=== PATIENT | female | born 1955 | race African-American/Black ===

== ENCOUNTER 2017-05-16 06:45 | Emergency (ER) | payer MEDICARE ==
[2017-05-16 06:58] LABS: ABSOLUTE BASOPHILS # (AUTO) 0.1 10^3/uL (0.0-0.2); ABSOLUTE EOSINOPHILS # (AUTO) 0.1 10^3/uL (0.0-0.6); ABSOLUTE LYMPHOCYTES (AUTO) 2.6 10^3/uL (0.5-4.7); ABSOLUTE MONOCYTES (AUTO) 0.5 10^3/uL (0.1-1.4); ABSOLUTE NEUT (AUTO) 5.4 10^3/uL (1.7-8.2); BASOPHILS % (AUTO) 0.9 % (0-2); EOSINOPHILS % (AUTO) 0.8 % (0-6); HEMATOCRIT 40.4 % (36.0-47.0); HEMOGLOBIN 13.3 g/dL (12.0-15.5); LYMPHOCYTES % (AUTO) 30.2 % (13-45); MEAN CORPUSCULAR HEMOGLOBIN 28.7 pg (27.0-33.4); MEAN CORPUSCULAR HGB CONC 32.9 g/dL (32.0-36.0); MEAN CORPUSCULAR VOLUME 87 fl (80-97); PLATELET COUNT 617 10^3/uL (150-450); RED BLOOD COUNT 4.63 10^6/uL (3.72-5.28); RED CELL DISTRIBUTION WIDTH 15.1 % (11.5-14.0); SEGMENTED NEUTROPHILS % (AUTO) 62.1 % (42-78); TOTAL CELLS COUNTED % (AUTO) 100 %; WHITE BLOOD COUNT 8.7 10^3/uL (4.0-10.5)
--- NOTE | 2017-05-16 07:16 | ER Document Report ---
ED Respiratory Problem - General Chief Complaint: Breathing Difficulty Stated Complaint: DIFFICULTY BREATHING Time Seen by Provider: 05/16/17 06:46 Notes: The patient is a 61-year-old female, past medical history COPD, current smoker, presents with 1 day of increased productive cough, wheezing and shortness of breath. EMS was called this morning and she received 2 duo nebs and 125 mg Solu -Medrol. On arrival to the ER, she feels much better and her wheezing has improved. Her last COPD exacerbation was 2 years ago. She denies chest pain, nausea, vomiting, fevers, diarrhea, constipation, abdominal pain, leg swelling, hemoptysis or recent travel. TRAVEL OUTSIDE OF THE [place] IN LAST 30 DAYS: No - Related Data Allergies/Adverse Reactions: aspirin Allergy (Verified 09/10/15 19:20) levofloxacin [From Levaquin] Allergy (Verified 09/10/15 19:20) NSAIDS (Non-Steroidal Anti-Inflamma Allergy (Verified 09/10/15 19:20) Past Medical History - General Information source: Patient - Social History Smoking Status: Current Every Day Smoker Chew tobacco use (# tins/day): No Frequency of alcohol use: None Drug Abuse: None Family History: Reviewed & Not Pertinent Patient has suicidal ideation: No Patient has homicidal ideation: No Pulmonary Medical History: Reports: Hx Asthma, Hx COPD Renal/ Medical History: Denies: Hx Peritoneal Dialysis Past Surgical History: Reports: Hx Hysterectomy, Hx Mastectomy - 2007 Review of Systems - Review of Systems Notes: REVIEW OF SYSTEMS: CONSTITUTIONAL: -fevers, -chills EENT: -eye pain, -difficulty swallowing, -nasal congestion CARDIOVASCULAR: -chest pain, -syncope. RESPIRATORY: +productive cough, +SOB GASTROINTESTINAL: -abdominal pain, -nausea, -vomiting, -diarrhea GENITOURINARY: -dysuria, -hematuria MUSCULOSKELETAL: -back pain, -neck pain SKIN: -rash or skin lesions. HEMATOLOGIC: -easy bruising or bleeding. LYMPHATIC: -swollen, enlarged glands. NEUROLOGICAL: -altered mental status or loss of consciousness, -headache, - neurologic symptoms PSYCHIATRIC: -anxiety, -depression. ALL OTHER SYSTEMS REVIEWED AND NEGATIVE. Physical Exam - Vital signs Vitals: Temp Pulse Ox 97.5 F 100 05/16/17 06:48 05/16/17 06:48 - Notes Notes: PHYSICAL EXAMINATION: GENERAL: Well-appearing, well-nourished and in no acute distress. HEAD: Atraumatic, normocephalic. EYES: Pupils equal round and reactive to light, extraocular movements intact, sclera anicteric, conjunctiva are normal. ENT: nares patent, oropharynx clear without exudates. Moist mucous membranes. NECK: Normal range of motion, supple without lymphadenopathy LUNGS: Breath sounds clear to auscultation bilaterally and equal. No wheezes rales or rhonchi. No respiratory distress. HEART: Regular rate and rhythm without murmurs ABDOMEN: Soft, nontender, normoactive bowel sounds. No guarding, no rebound. No masses appreciated. EXTREMITIES: Normal range of motion, no pitting or edema. No cyanosis. NEUROLOGICAL: Cranial nerves grossly intact. Normal speech, normal gait. Normal sensory and motor exams. PSYCH: Normal mood, normal affect. SKIN: Warm, Dry, normal turgor, no rashes or lesions noted. Course - Re-evaluation Re-evalutation: Patient continues to not have any wheezing and she is in no respiratory distress. Her chest x-ray and blood work are unremarkable. Will send her home with 4 more days of steroids and a refill of her albuterol with instructions to try to stop smoking. Given very strict return precautions and she understands. - Vital Signs Vital signs: Temp Pulse Resp BP Pulse Ox 97.5 F 27 H 195/95 H 100 05/16/17 06:48 05/16/17 08:41 05/16/17 08:41 05/16/17 08:01 - Laboratory Result Diagrams: 05/16/17 06:15 05/16/17 06:15 Laboratory results interpreted by me: 05/16/17 05/16/17 06:15 06:15 RDW 15.1 H Plt Count 617 H Sodium 147.6 H Potassium 5.1 H Chloride 109 H Direct Bilirubin 0.5 H - Diagnostic Test Radiology reviewed: Image reviewed, Reports reviewed Radiology results interpreted by me: CXR: NAD. Obstructive lung disease. - EKG Interpretation by Me EKG shows normal: Sinus rhythm, A[place], Intervals, QRS Complexes, ST-T Waves Rate: Normal When compared to previous EKG there are: No significant change Additional EKG results interpreted by me: No STEMI. Discharge - Discharge Clinical Impression: COPD exacerbation Condition: Stable Disposition: HOME, SELF-CARE Additional Instructions: BRONCHITIS WITH BRONCHOSPASM (WHEEZING): You have bronchitis with bronchospasm (wheezing). Sometimes people develop wheezing with a chest cold. This occurs either because of an underlying tendency toward asthma or because the virus itself irritates the bronchial tubes. This irritation causes cough, shortness of breath, and wheezing. Emergency treatment of bronchospasm may include adrenaline shots or bronchodilator aerosol. You may feel lightheaded and have a rapid pulse for an hour or two. Rest and get plenty of fluids. At home, we'll treat you with a bronchodilator inhaler. Corticosteroids may be required for some patients. Until you recover, avoid chemical fumes, dusts, pollens, and exercising in very cold or dry air. If you smoke, stop now! Most cases of bronchitis get better without antibiotics. We prescribe antibiotics when we believe bacteria are damaging your airways, or if there's high risk the bronchitis will worsen into pneumonia. Increase your fluid intake. A cool mist humidifier may make your lungs more comfortable. An expectorant (cough medicine that loosens phlegm) can help. Repeated episodes of bronchitis and bronchospasm may result in lung damage -- for example, chronic bronchitis, recurrent pneumonias, or emphysema. If you develop a fever, increased wheezing, chest pain, or severe shortness of breath, you should contact the doctor immediately. INHALED BRONCHODILATORS: You have received a treatment of and/or prescription for an inhaled bronchodilator -- a medication which stimulates the airways in the lung to dilate. This improves the flow of air in asthma, bronchitis, and emphysema. These medicines have some similarity to adrenaline, and can cause similar side effects: shakiness, racing heart, and a sense of nervousness. These side effects decrease with time. Contact your doctor if these side effects are severe. Do not over-use the medicine. Too-frequent use of the inhaler may make it ineffective. Call your doctor if the inhaler is not controlling your symptoms at the prescribed doses. STEROID MEDICATION: You have been given an injection of or oral medicine of the cortisone/ steroid class. This medication is used to control inflammation or allergy. Alonso t is usually only given for a short period of time, until the acute process subsides. There are usually no side effects from short-term use of cortisone-like medications. Some persons feel an increased sense of well-being and are not sleepy at bedtime. Long-term use of cortisone medications is best avoided, unless required for a severe condition. If your condition does not remit, or relapses after the course of corticosteroid medication, you should consult your physician. USE OF ACETAMINOPHEN (Tylenol): Acetaminophen may be taken for pain relief or fever control. It's much safer than aspirin, offering a wider range of "safe" dosages. It is safe during . Some brand names are Tylenol, Panadol, Datril, Anacin 3, Tempra, and Liquiprin. Acetaminophen can be repeated every four hours. The following are maximum recommended dosages: >89 pounds or adults 650 mg to 900 mg Acetaminophen can be repeated every four hours. Maximum dose not to exceed 4000 mg a day. SMOKING: If you smoke, you should stop smoking. The tar and chemicals in cigarette smoke are harmful. Smoking has been shown to cause: emphysema chronic bronchitis lung cancer mouth and throat cancer stomach and pancreas cancer premature aging defects In addition, smoking increases ear and lung infections in children of smokers. FOLLOW-UP CARE: If you have been referred to a physician for follow-up care, call the physician s office for an appointment as you were instructed or within the next two days. If you experience worsening or a significant change in your symptoms, notify the physician immediately or return to the Emergency Department at any time for re-evaluation. Prescriptions: Albuterol Sulfate [Proair HFA Inhalation Aerosol 8.5 gm MDI] 2 puff IH Q4H PRN # 1 mdi PRN Reason: Prednisone [Deltasone 20 mg Tablet] 3 tab PO DAILY 4 Days tablet Forms: Elevated Blood Pressure Referrals: MARK GUILLEN MD [Primary Care Provider] - Follow up as needed
[2017-05-16 07:19] LABS: ALANINE AMINOTRANSFERASE 18 U/L (9-52); ALBUMIN 4.1 g/dL (3.5-5.0); ALKALINE PHOSPHATASE 95 U/L (38-126); ANION GAP 11 (5-19); ASPARTATE AMINO TRANSFERASE 21 U/L (14-36); BILIRUBIN,DIRECT 0.5 mg/dL (0.0-0.4); BILIRUBIN,TOTAL 0.5 mg/dL (0.2-1.3); BLOOD UREA NITROGEN 12 mg/dL (7-20); CALCIUM 9.7 mg/dL (8.4-10.2); CARBON DIOXIDE 28 mmol/L (22-30); CHLORIDE 109 mmol/L (98-107); CREATINE KINASE 48 U/L (30-135); GLUCOSE 103 mg/dL (75-110); POTASSIUM 5.1 mmol/L (3.6-5.0); SODIUM 147.6 mmol/L (137-145)
[2017-05-16 07:20] LABS: VENOUS BLOOD BASE EXCESS 2.1 mmol/L; VENOUS BLOOD PCO2 61.6 mmHg (35-63); VENOUS BLOOD PH 7.31 (7.30-7.42)
--- NOTE | 2017-05-16 07:29 | RADIOLOGY REPORT (SQ) ---
EXAM DESCRIPTION: CHEST SINGLE VIEW CLINICAL HISTORY: SOB COMPARISON: 12/11/2015 FINDINGS: Single frontal view of the chest. The cardiomediastinal silhouette has normal size and contour. No consolidation, pneumothorax, or pleural effusion. No displaced rib fractures identified. Postoperative change of the cervical spine. Hyperinflation. Upper abdominal soft tissues are unremarkable. IMPRESSION: 1. No acute pulmonary process identified. Obstructive lung disease.
[2017-05-16 08:51] VITALS: BP 195/95
--- NOTE | 2017-05-16 13:15 | EKG REPORT ---
SEVERITY:- BORDERLINE ECG - SINUS RHYTHM BORDERLINE T ABNORMALITIES, INFERIOR LEADS LA ABNORMALITY IRBBB. : Confirmed by: Wei Washington MD 16-May-2017 13:14:49
== END 2017-05-16 08:51 | disposition home or self-care (01) ==
LOC: ER 06:45
DX: J44.1 Chronic obstructive pulmonary disease with (acute) exacerbation (principal); F17.200 Nicotine dependence, unspecified, uncomplicated; R05 Cough; R06.02 Shortness of breath; Z88.6 Allergy status to analgesic agent; Z88.1 Allergy status to other antibiotic agents; Z88.8 Allergy status to other drugs, medicaments and biological substances
CPT/HCPCS: 36415; 71045; 80053; 82550; 82803; 83880; 84484; 85025; 93005; 93010; 99285

== ENCOUNTER 2017-08-23 22:25 | Emergency (ER) | payer MEDICARE ==
[2017-08-23 23:24] LABS: ABSOLUTE LYMPHOCYTES (AUTO) 1.5 10^3/uL (0.5-4.7); ABSOLUTE MONOCYTES (AUTO) 0.6 10^3/uL (0.1-1.4); ABSOLUTE NEUT (AUTO) 6.3 10^3/uL (1.7-8.2); BASOPHILS % (AUTO) 0.4 % (0-2); EOSINOPHILS % (AUTO) 0.1 % (0-6); HEMATOCRIT 33.9 % (36.0-47.0); HEMOGLOBIN 11.4 g/dL (12.0-15.5); LYMPHOCYTES % (AUTO) 17.9 % (13-45); MEAN CORPUSCULAR HEMOGLOBIN 26.3 pg (27.0-33.4); MEAN CORPUSCULAR HGB CONC 33.5 g/dL (32.0-36.0); MEAN CORPUSCULAR VOLUME 79 fl (80-97); MONOCYTES % (AUTO) 7.4 % (3-13); PLATELET COUNT 388 10^3/uL (150-450); RED BLOOD COUNT 4.32 10^6/uL (3.72-5.28); RED CELL DISTRIBUTION WIDTH 16.2 % (11.5-14.0); SEGMENTED NEUTROPHILS % (AUTO) 74.2 % (42-78); TOTAL CELLS COUNTED % (AUTO) 100 %; WHITE BLOOD COUNT 8.4 10^3/uL (4.0-10.5)
[2017-08-23 23:31] LABS: ALANINE AMINOTRANSFERASE 17 U/L (9-52); ALBUMIN 3.8 g/dL (3.5-5.0); ALKALINE PHOSPHATASE 104 U/L (38-126); ANION GAP 11 (5-19); ASPARTATE AMINO TRANSFERASE 12 U/L (14-36); BILIRUBIN,DIRECT 0.4 mg/dL (0.0-0.4); BILIRUBIN,TOTAL 0.8 mg/dL (0.2-1.3); BLOOD UREA NITROGEN 10 mg/dL (7-20); CALCIUM 9.2 mg/dL (8.4-10.2); CARBON DIOXIDE 23 mmol/L (22-30); CHLORIDE 108 mmol/L (98-107); CREATINE KINASE 29 U/L (30-135); GLUCOSE 112 mg/dL (75-110); POTASSIUM 3.9 mmol/L (3.6-5.0); SODIUM 141.7 mmol/L (137-145)
[2017-08-23 23:40] LABS: APPEARANCE,URINE CLEAR; BILIRUBIN,URINE NEGATIVE (NEGATIVE); COLOR,URINE YELLOW; GLUCOSE, URINE NEGATIVE (NEGATIVE); KETONES,URINE NEGATIVE (NEGATIVE); LEUKOCYTE ESTERASE,URINE LARGE (NEGATIVE); NITRITE,URINE NEGATIVE (NEGATIVE); PROTEIN,URINE NEGATIVE (NEGATIVE); URINE SPECIFIC GRAVITY 1.003; UROBILINOGEN,URINE NEGATIVE mg/dL (<2.0)
[2017-08-23 23:43] LABS: NT PRO BNP 119 pg/mL (5-900)
[2017-08-23 23:49] LABS: CREATINE KINASE MB < 0.22 ng/mL (<4.55); TROPONIN I < 0.012 ng/mL
--- NOTE | 2017-08-24 00:29 | ER Document Report ---
ED General - General Chief Complaint: Breathing Difficulty Stated Complaint: DIFFICULTY BREATHING Time Seen by Provider: 08/24/17 00:13 Mode of Arrival: Medic Information source: Patient, Emergency Med Personnel Notes: 61 yr old female hx of emphysema presents with complaints of sob, cough with white mucous. pt notes symptoms worsened since yesterday, notes fevers and chills yesterday but that resolved today. pt has combivent and albuterol inhaler at home, notes that she has not been on steroids in a long time. pt notes ems gave her breathing treatments and her symptoms have since resolved. TRAVEL OUTSIDE OF THE [place] IN LAST 30 DAYS: No - HPI Onset: Yesterday Onset/Duration: Sudden Quality of pain: No pain Severity: Mild Pain Level: Denies Associated symptoms: Nonproductive cough, Productive cough, Shortness of breath Exacerbated by: Walking Relieved by: Denies Similar symptoms previously: Yes Recently seen / treated by doctor: Yes - Related Data Allergies/Adverse Reactions: aspirin Allergy (Verified 09/10/15 19:20) levofloxacin [From Levaquin] Allergy (Verified 09/10/15 19:20) NSAIDS (Non-Steroidal Anti-Inflamma Allergy (Verified 09/10/15 19:20) Past Medical History - Social History Smoking Status: Former Smoker Cigarette use (# per day): No Chew tobacco use (# tins/day): No Smoking Education Provided: No Frequency of alcohol use: None Drug Abuse: None Family History: Reviewed & Not Pertinent Patient has suicidal ideation: No Patient has homicidal ideation: No - Past Medical History Cardiac Medical History: Reports: Hx Hypertension Pulmonary Medical History: Reports: Hx Asthma, Hx COPD Renal/ Medical History: Denies: Hx Peritoneal Dialysis Past Surgical History: Reports: Hx Hysterectomy, Hx Mastectomy - 2007 Review of Systems - Review of Systems Notes: REVIEW OF SYSTEMS: CONSTITUTIONAL : Denies fever, chills, or sweats. Denies recent illness. EENT: Denies eye, ear, throat, or mouth pain or symptoms. Denies nasal or sinus congestion or discharge. Denies throat, tongue, or mouth swelling or difficulty swallowing. CARDIOVASCULAR: Denies chest pain. Denies palpitations or racing or irregular heart beat. Denies ankle edema. RESPIRATORY: admits to shortness of breath GASTROINTESTINAL: Denies abdominal pain or distention. Denies nausea, vomiting , or diarrhea. Denies blood in vomitus, stools, or per rectum. Denies black, tarry stools. Denies constipation. GENITOURINARY: Denies difficulty urinating, painful urination, burning, frequency, blood in urine, or discharge. FEMALE GENITOURINARY: Denies vaginal bleeding, heavy or abnormal periods, irregular periods. Denies vaginal discharge or odor. MUSCULOSKELETAL: Denies back or neck pain or stiffness. Denies joint pain or swelling. SKIN: Denies rash, lesions or sores. HEMATOLOGIC : Denies easy bruising or bleeding. LYMPHATIC: Denies swollen, enlarged glands. NEUROLOGICAL: Denies confusion or altered mental status. Denies passing out or loss of consciousness. Denies dizziness or lightheadedness. Denies headache. Denies weakness or paralysis or loss of use of either side. Denies problems with gait or speech. Denies sensory loss, numbness, or tingling. Denies seizures. PSYCHIATRIC: Denies anxiety or stress. Denies depression, suicidal ideation, or homicidal ideation. ALL OTHER SYSTEMS REVIEWED AND NEGATIVE. PHYSICAL EXAMINATION: GENERAL: Well-appearing, extremely thin and in no acute distress. HEAD: Atraumatic, normocephalic. EYES: Pupils equal round and reactive to light, extraocular movements intact, conjunctiva are normal. ENT: Nares patent, oropharynx clear without exudates. Moist mucous membranes. NECK: Normal range of motion, supple without lymphadenopathy LUNGS: Breath sounds clear to auscultation bilaterally and equal. No wheezes rales or rhonchi. HEART: Regular rate and rhythm without murmurs ABDOMEN: Soft, nontender, nondistended abdomen. No guarding, no rebound. No masses appreciated. Female : deferred Musculoskeletal: Normal range of motion, no pitting or edema. No cyanosis. NEUROLOGICAL: Cranial nerves grossly intact. Normal speech, normal gait. Normal sensory, motor exams PSYCH: Normal mood, normal affect. SKIN: Warm, Dry, normal turgor, no rashes or lesions noted. Dictation was performed using [employer] voice recognition software Physical Exam - Vital signs Vitals: Pulse Ox 100 08/23/17 22:29 Course - Re-evaluation Re-evalutation: 08/24/17 00:28 pt was ambulated by myself, continued to sat 100% but did become sob. hr max 99 , workup otherwise benign, given that pateint has improved significantly i will dc home with close follow up. pt is happy with this plan 08/24/17 01:02 After performing a Medical Screening Examination, I estimate there is LOW risk for ACUTE CORONARY SYNDROME, PULMONARY EMBOLI, RESPIRATORY FAILURE, SEPSIS OR MENINGITIS, thus I consider the discharge disposition reasonable. I have reevaluated this patient multiple times and no significant life threatening changes are noted. The patient and I have discussed the diagnosis and risks, and we agree with discharging home with close follow-up. We also discussed returning to the Emergency Department immediately if new or worsening symptoms occur. We have discussed the symptoms which are most concerning (e.g., changing or worsening pain, trouble swallowing or breathing, neck stiffness, fever) that necessitate immediate return. - Vital Signs Vital signs: Temp Pulse Resp BP Pulse Ox 22 H 105/83 100 08/24/17 00:43 08/24/17 00:44 08/24/17 00:43 - Laboratory Result Diagrams: 08/23/17 23:03 08/23/17 23:03 Laboratory results interpreted by me: 08/23/17 08/23/17 08/23/17 23:03 23:03 23:03 Hgb 11.4 L Hct 33.9 L MCV 79 L MCH 26.3 L RDW 16.2 H Chloride 108 H Glucose 112 H AST 12 L Creatine Kinase 29 L Urine Blood SMALL H Ur Leukocyte Esterase LARGE H - Diagnostic Test Radiology reviewed: Image reviewed - chest xray cosnsitnat with emphysema, Reports reviewed Discharge - Discharge Clinical Impression: COPD exacerbation Condition: Stable Disposition: HOME, SELF-CARE Instructions: Chronic Obstructive Lung Disease ([facility]) Prescriptions: Prednisone 60 mg PO DAILY 4 Days tablet Referrals: MARK GUILLEN MD [Primary Care Provider] - Follow up tomorrow
[2017-08-24 00:46] VITALS: BP 105/83
--- NOTE | 2017-08-24 08:14 | RADIOLOGY REPORT (SQ) ---
EXAM DESCRIPTION: CHEST SINGLE VIEW COMPLETED DATE/TIME: 08/23/2017 10:49 pm REASON FOR STUDY: difficulty breathing COMPARISON: 05/16/2017 EXAM PARAMETERS: NUMBER OF VIEWS: One view. TECHNIQUE: Single frontal radiographic view of the chest acquired. RADIATION DOSE: NA LIMITATIONS: None. FINDINGS: LUNGS AND PLEURA: Over expanded lung glover remain clear and stable prior study. MEDIASTINUM AND HILAR STRUCTURES: No masses. Contour normal. HEART AND VASCULAR STRUCTURES: Heart normal in size. Normal vasculature. BONES: No acute findings. HARDWARE: Operative changes lower cervical spine. OTHER: No other significant finding. IMPRESSION: Overexpansion the lung glover concerning for COPD. No acute infiltrates. TECHNICAL DOCUMENTATION: JOB ID: [id number] [employer]- All Rights Reserved Reading location - IP/workstation name: [email or web address]
--- NOTE | 2017-08-24 09:37 | EKG REPORT ---
SEVERITY:- ABNORMAL ECG - SINUS RHYTHM NONSPECIFIC T ABNORMALITIES, INFERIOR LEADS : Confirmed by: Bridget Sullivan 24-Aug-2017 09:37:04
== END 2017-08-24 00:46 | disposition home or self-care (01) ==
LOC: ER 22:25
DX: J44.1 Chronic obstructive pulmonary disease with (acute) exacerbation (principal); I10 Essential (primary) hypertension; Z88.6 Allergy status to analgesic agent; Z87.891 Personal history of nicotine dependence; Z90.710 Acquired absence of both cervix and uterus
CPT/HCPCS: 36415; 71045; 80053; 81001; 82550; 82553; 83880; 84484; 85025; 93005; 93010; 99285

== ENCOUNTER → 2017-09-08 | Outpatient (CLI) | payer MEDICARE ==
[2017-09-08 17:37] LABS: ALANINE AMINOTRANSFERASE 19 U/L (9-52); ALBUMIN 4.6 g/dL (3.5-5.0); ALKALINE PHOSPHATASE 95 U/L (38-126); ANION GAP 13 (5-19); ASPARTATE AMINO TRANSFERASE 24 U/L (14-36); BILIRUBIN,DIRECT 0.5 mg/dL (0.0-0.4); BILIRUBIN,TOTAL 0.7 mg/dL (0.2-1.3); BLOOD UREA NITROGEN 11 mg/dL (7-20); CALCIUM 10.1 mg/dL (8.4-10.2); CARBON DIOXIDE 28 mmol/L (22-30); CHLORIDE 109 mmol/L (98-107); GLUCOSE 110 mg/dL (75-110); IRON(TIBC) 32.4 ug/dL (37-170); POTASSIUM 5.5 mmol/L (3.6-5.0); SODIUM 149.7 mmol/L (137-145); TOTAL PROTEIN 7.8 g/dL (6.3-8.2)
[2017-09-08 18:11] LABS: FERRITIN 8.91 ng/mL (11.1-264.0)
== END ==
LOC: OD 16:54
PROVIDERS: ATTEND Internal Medicine Geriatric Medicine
DX: I10 Essential (primary) hypertension (principal); D50.9 Iron deficiency anemia, unspecified
CPT/HCPCS: 36415; 80053; 82728; 83540; 83550

== ENCOUNTER 2019-08-16 11:30 | Inpatient (IN) | payer MEDICARE ==
[2019-08-16] MEDS ORDERED: IPRATROPIUM/ALBUTEROL 0.5-2.5 MG/3 ML AMPUL NEB ONE (11:48)
[2019-08-16] MEDS ORDERED: METHYLPREDNISOLONE INJ 125 MG/2 ML SDV IV ONE (11:48)
--- NOTE | 2019-08-16 12:12 | ER Document Report ---
ED General - General Chief Complaint: Shortness Of Breath Stated Complaint: SHORTNESS OF BREATH Time Seen by Provider: 08/16/19 11:33 Primary Care Provider: LIGIA ARCE MD [Primary Care Provider] - Follow up as needed TRAVEL OUTSIDE OF THE [place] IN LAST 30 DAYS: No - HPI Notes: Chief complaint: Shortness of breath History of present illness: 63-year-old female followed by Dr. Arce with hi story of COPD and prior hospital admissions for respiratory failure who quit smoking within the last 3 months now presenting with cough productive of scant amounts of white sputum and progressively worsening breathing problems over the last 2 to 3 weeks. She denies chest pain. She denies fever or chills. She denies travel outside the area. She denies any known exposure to COVID-19 virus. - Related Data Allergies/Adverse Reactions: aspirin Allergy (Verified 09/10/15 19:20) levofloxacin [From Levaquin] Allergy (Verified 09/10/15 19:20) NSAIDS (Non-Steroidal Anti-Inflamma Allergy (Verified 09/10/15 19:20) Past Medical History - General Information source: Patient, [facility] Records - Social History Smoking Status: Former Smoker Frequency of alcohol use: None Drug Abuse: None Family History: Reviewed & Not Pertinent - Past Medical History Cardiac Medical History: Reports: Hx Hypertension Pulmonary Medical History: Reports: Hx Asthma, Hx COPD Renal/ Medical History: Denies: Hx Peritoneal Dialysis Past Surgical History: Reports: Hx Hysterectomy, Hx Mastectomy - 2007 Review of Systems - Review of Systems Notes: Constitutional: Negative for fever. HENT: Negative for sore throat. Eyes: Negative for visual changes. Cardiovascular: Negative for chest pain. Respiratory: As per HPI. Gastrointestinal: Negative for abdominal pain, vomiting or diarrhea. Genitourinary: Negative for dysuria. Musculoskeletal: Negative for back pain. Skin: Negative for rash. Neurological: Negative for headaches, weakness or numbness. 10 point ROS negative except as marked above and in HPI. Physical Exam - Vital signs Vitals: Temp 99.4 F 08/16/19 11:30 - Notes Notes: GENERAL: Slender chronically ill-appearing elderly female appearing in moderate respiratory distress. SKIN: Good turgor no rashes. HEAD: Normocephalic atraumatic. EYES: PERRLA. EOMI. Conjunctivae and sclerae clear. EARS: CANALS AND TMS CLEAR. NOSE: CLEAR. MOUTH: Moist mucosa. Good dentition. No stridor or edema. No drooling. NECK: Supple. No masses or thyromegaly. No adenopathy. Carotids 2+ without bruits. No JVD. BACK: Symmetrical without tenderness. CHEST: Respirations moderately labored. Minimal faint end expiratory wheezes bilaterally with symmetrical breath sounds but poor air movement. HEART: Tachycardic regular rhythm. No murmur gallop or rub. ABDOMEN: Soft nontender without masses, organomegaly or rebound. Bowel sounds normally active. No bruits. GENITALIA: Deferred. EXTREMITIES: Trace bilateral pretibial edema. No calf tenderness. Cap refill less than 1.5 seconds. Dorsalis pedis and posterior tibial pulses 3+ and symmetrical. NEUROLOGICAL: GCS 15. Alert and oriented x3. Fluent speech. Cranial nerves II through XII intact. Sensorimotor and cerebellar normal. Normal tone. PSYCHIATRIC: Anxious affect. Course - Re-evaluation Re-evalutation: Patient was initially treated with low-flow oxygen by nasal cannula, IV Solu- Medrol and IV magnesium along with nebulizer treatments. She quickly stabilized. Her chest x-ray unfortunately shows a new 3.8 cm mass in the right upper lobe. CT has been requested. I spoke with her primary provider, Dr. Arce and he will admit patient to [facility]. 08/16/19 13:12 - Vital Signs Vital signs: Temp Pulse Resp BP Pulse Ox 99.4 F 12 116/79 94 08/16/19 11:30 08/16/19 13:01 08/16/19 13:00 08/16/19 13:01 - Laboratory Result Diagrams: 08/16/19 12:00 08/16/19 12:00 Laboratory results interpreted by me: 08/16/19 08/16/19 08/16/19 12:00 12:00 12:00 RDW 15.7 H Carbonic Acid ABG pH ABG pCO2 ABG pO2 ABG HCO3 ABG Total CO2 ABG O2 Saturation Carbon Dioxide 32 H Glucose 127 H NT-Pro-B Natriuret Pep 469 H 08/16/19 12:22 RDW Carbonic Acid 1.95 H ABG pH 7.32 L ABG pCO2 64.9 H ABG pO2 154.6 H ABG HCO3 32.4 H ABG Total CO2 34.4 H ABG O2 Saturation 98.8 H Carbon Dioxide Glucose NT-Pro-B Natriuret Pep - Diagnostic Test Radiology reviewed: Reports reviewed - 3.8 cm mass noted on chest x-ray. COPD changes. - EKG Interpretation by Me Additional EKG results interpreted by me: 08/16/19 12:16 Twelve-lead EKG from 1145 hrs. is reviewed contemporaneously by me demonstrating sinus tachycardia with a rate of 133 with normal intervals and axis of +39 degrees. Patient shows interventricular conduction delay pattern and possible old anterior infarct. Minimal ST depression and T wave flattening in inferior leads. When compared to prior tracing from 08/23/2017 the only significant interval change is the patient's heart rate. Indication for current study: Tachycardia. Discharge - Discharge Clinical Impression: Lung mass, COPD with exacerbation, Hypoxia Condition: Fair Disposition: ADMITTED INPATIENT Admitting Provider: [facility] Admitted: [facility] Referrals: LIGIA ARCE MD [Primary Care Provider] - Follow up as needed
[2019-08-16 12:15] LABS: ABSOLUTE LYMPHOCYTES (AUTO) 1.2 10^3/uL (0.5-4.7); ABSOLUTE MONOCYTES (AUTO) 0.7 10^3/uL (0.1-1.4); ABSOLUTE NEUT (AUTO) 6.3 10^3/uL (1.7-8.2); BASOPHILS % (AUTO) 0.4 % (0-2); EOSINOPHILS % (AUTO) 0.1 % (0-6); HEMATOCRIT 40.9 % (36.0-47.0); HEMOGLOBIN 13.4 g/dL (12.0-15.5); LYMPHOCYTES % (AUTO) 14.3 % (13-45); MEAN CORPUSCULAR HEMOGLOBIN 28.4 pg (27.0-33.4); MEAN CORPUSCULAR HGB CONC 32.7 g/dL (32.0-36.0); MEAN CORPUSCULAR VOLUME 87 fl (80-97); PLATELET COUNT 413 10^3/uL (150-450); RED BLOOD COUNT 4.72 10^6/uL (3.72-5.28); RED CELL DISTRIBUTION WIDTH 15.7 % (11.5-14.0); SEGMENTED NEUTROPHILS % (AUTO) 77.2 % (42-78); TOTAL CELLS COUNTED % (AUTO) 100 %; WHITE BLOOD COUNT 8.2 10^3/uL (4.0-10.5)
[2019-08-16 12:32] LABS: ALBUMIN 3.9 g/dL (3.5-5.0); ALKALINE PHOSPHATASE 106 U/L (38-126); ANION GAP 6 (5-19); ASPARTATE AMINO TRANSFERASE 23 U/L (14-36); BILIRUBIN,TOTAL 0.6 mg/dL (0.2-1.3); BLOOD UREA NITROGEN 10 mg/dL (7-20); CALCIUM 9.3 mg/dL (8.4-10.2); CARBON DIOXIDE 32 mmol/L (22-30); CHLORIDE 103 mmol/L (98-107); GLUCOSE 127 mg/dL (75-110); POTASSIUM 4.1 mmol/L (3.6-5.0); TOTAL PROTEIN 7.4 g/dL (6.3-8.2)
[2019-08-16] MEDS: MAGNESIUM SULFATE/D5W 1 GM/100 ML RTUPB IV SCH ×2 (12:33→13:28)
[2019-08-16 12:34] LABS: ARTERIAL BLOOD BASE EXCESS 4.4 mmol/L; ARTERIAL BLOOD H2CO3 1.95 mmol/L (1.05-1.35); ARTERIAL BLOOD HCO3 32.4 mmol/L (20-24); ARTERIAL BLOOD O2 SATURATION 98.8 % (94-98); ARTERIAL BLOOD PCO2 64.9 mmHg (35-45); ARTERIAL BLOOD PH 7.32 (7.35-7.45); ARTERIAL BLOOD PO2 154.6 mmHg (80-100); ARTERIAL BLOOD TOTAL CO2 34.4 mmol/L (21-25)
[2019-08-16 12:35] LABS: ARTERIAL BLOOD FIO2 2L
[2019-08-16 12:44] LABS: NT PRO BNP 469 pg/mL (<125); TROPONIN I < 0.012 ng/mL
--- NOTE | 2019-08-16 12:47 | RADIOLOGY REPORT (SQ) ---
EXAM DESCRIPTION: CHEST SINGLE VIEW IMAGES COMPLETED DATE/TIME: 08/16/2019 12:33 pm REASON FOR STUDY: dyspnea COMPARISON: 09/11/2015 EXAM PARAMETERS: NUMBER OF VIEWS: One view. TECHNIQUE: Single frontal radiographic view of the chest acquired. RADIATION DOSE: NA LIMITATIONS: None. FINDINGS: LUNGS AND PLEURA: Hyperexpansion of the lungs. There is a 38.7 mm suprahilar mass on the right. MEDIASTINUM AND HILAR STRUCTURES: No masses. Contour normal. HEART AND VASCULAR STRUCTURES: Heart normal in size. Normal vasculature. BONES: No acute findings. HARDWARE: None in the chest. OTHER: No other significant finding. IMPRESSION: 38.7 mm suprahilar mass on the right. TECHNICAL DOCUMENTATION: JOB ID: [id number] [employer]- All Rights Reserved Reading location - IP/workstation name: [email or web address]
--- NOTE | 2019-08-16 14:07 | RADIOLOGY REPORT (SQ) ---
EXAM DESCRIPTION: CT CHEST WITH IMAGES COMPLETED DATE/TIME: 08/16/2019 1:49 pm REASON FOR STUDY: RUL mass COMPARISON: None. TECHNIQUE: CT scan of the chest performed using helical scanning technique with dynamic intravenous contrast injection. Images reviewed with lung, soft tissue and bone windows. Reconstructed coronal and sagittal MPR and MIP images reviewed. All images stored on PACS. All CT scanners at this facility use dose modulation, iterative reconstruction, and/or weight based d osing when appropriate to reduce radiation dose to as low as reasonably achievable (ALARA). [facility]: Dose Right [facility]: CareDose [facility]: Dose Right [facility]: Teradose 4D [facility]: Exerscrip RENAL FUNCTION: GFR > 60. RADIATION DOSE: CT Rad equipment meets quality standard of care and radiation dose reduction techniq ues were employed. CTDIvol: 3.1 mGy. DLP: 133 mGy-cm. . LIMITATIONS: None. FINDINGS: LUNGS AND PLEURA: There is a 2.1 x 3.5 cm mass in the posterior right upper lobe. Left nate ng is clear. Mild emphysema. HILAR AND MEDIASTINAL STRUCTURES: No identified masses or abnormal nodes. HEART AND VASCULAR STRUCTURES: No aneurysm or dissection. No central pulmonary emboli. No pericardi al effusion. HARDWARE: None in the chest. UPPER ABDOMEN: No significant findings. Limited exam. THYROID AND OTHER SOFT TISSUES: No masses. No adenopathy. BONES: No significant finding. OTHER: No other significant finding. IMPRESSION: Solitary pulmonary mass suspicious for malignancy. TECHNICAL DOCUMENTATION: JOB ID: [id number] Quality ID # [id number]: Final reports with documentation of one or more dose reduction techniques (e.g., Au tomated exposure control, adjustment of the mA and/or kV according to patient size, use of iterative reconstruction technique) 2010 [employer]- All Rights Reserved Reading location - IP/workstation name: [email or web address]
--- NOTE | 2019-08-16 17:26 | EKG REPORT ---
SEVERITY:- ABNORMAL ECG - SINUS TACHYCARDIA IVCD, CONSIDER ATYPICAL RBBB ST DEPRESSION, CONSIDER ISCHEMIA, INF LEADS : Confirmed by: Veronica Combs MD 16-Aug-2019 17:25:09
--- NOTE | 2019-08-16 19:11 | PDOC H&P ---
History of Present Illness Admission Date/PCP: 08/16/19 14:06 LIGIA ARCE MD Patient complains of: Difficulty with breathing History of Present Illness: WINIFRED STOKES is a 63 year old female patient known to my practice with history of Asthma COPD, heart disease, hypertension, hyperlipidemia, chronic antral gastritis, and s/p bilateral mastectomies who presented to the ED with progressively worsening difficulty with breathing over last 2-3 weeks. Patient reported compliance with her medication at home, admitted to associated coughing with minimal sputum production. She denied any associated chest pain but reported that her heart felt like jointing out of her chest. No fever or chills. She denied any nausea, vomiting or abdominal pain. She denied ongoing cigarette smoking. No denied any running nose, nasal or sinus congestion, headache or dizziness. She denies any recent travel outside the area or exposure to known or suspected person with COVID-19 virus infection. Her initial presentation and evaluation in the ED was significant for labored breathing, tachycardia, tachypnea, abnormal chest X ray and chest CT scan revealing mild emphysema and right upper lobe mass, and her ABG suggestive of hypercapnia. Her morbidities are as listed below. She was advised hospitalization for further evaluation and management. Past Medical History Cardiac Medical History: Reports: Hyperlipidema, Hypertension Pulmonary Medical History: Reports: Asthma, Chronic Obstructive Pulmonary Dis ease (COPD) Malignancy Medical History: Reports: Breast Cancer - s/p mastectomies (L) 2003 and (R) 2007. GI Medical History: Reports: Other - chronic antral gastritis Psychiatric Medical History: Denies: Depression Past Surgical History Past Surgical History: Reports: Hysterectomy, Mastectomy - 2008 Social History Smoking Status: Former Smoker Electronic Cigarette use?: No Frequency of Alcohol Use: None Hx Recreational Drug Use: No Drugs: None Hx Prescription Drug Abuse: No - Advance Directive Resuscitation Status: Full Code Family History Family History: Reviewed & Not Pertinent Parental Family History Reviewed: Yes Children Family History Reviewed: Yes Sibling(s) Family History Reviewed.: Yes Medication/Allergy Home Medications: Albuterol Sulfate [Ventolin 0.083% Neb 2.5 mg/3 mL Ampul] 1 vial NEB Q4HP PRN Ascorbic Acid [Vitamin C with Francy Hips] 500 mg PO DAILY 08/16/19 Ferrous Sulfate [Feosol 325 mg Tablet] 325 mg PO BID 08/16/19 Fluticasone/Umeclidin/Vilanter [Trelegy 100-62.5-25 Mcg Ellipta 14 Dose/Dpi] 1 puff IH DAILY 08/16/19 Furosemide [Lasix 20 mg Tablet] 20 mg PO DAILY 08/16/19 Ipratropium/Albuterol Sulfate [Combivent Respimat 4 gm Mdi] 1 puff IH Q6HP PRN 08/16/19 Megestrol Acetate [Megace Lashell 400 mg/10 ml Udcup] 400 mg PO DAILY 08/16/19 Omeprazole 40 mg PO QAM 08/16/19 Roflumilast [Daliresp] 250 mg PO DAILY 08/16/19 Simvastatin [Zocor 10 mg Tablet] 20 mg PO QHS 08/16/19 Allergies/Adverse Reactions: aspirin Allergy (Verified 09/10/15 19:20) levofloxacin [From Levaquin] Allergy (Verified 09/10/15 19:20) NSAIDS (Non-Steroidal Anti-Inflamma Allergy (Verified 09/10/15 19:20) Review of Systems Constitutional: ABSENT: chills, fever(s), headache(s), weight gain, weight loss Eyes: ABSENT: visual disturbances Ears: ABSENT: hearing changes Cardiovascular: PRESENT: dyspnea on exertion, palpitations. ABSENT: chest pain, edema, orthropnea Respiratory: PRESENT: cough, dyspnea, sputum. ABSENT: hemoptysis Gastrointestinal: ABSENT: abdominal pain, constipation, diarrhea, hematemesis, hematochezia, nausea, vomiting Genitourinary: ABSENT: dysuria, hematuria Musculoskeletal: ABSENT: joint swelling Integumentary: ABSENT: rash, wounds Neurological: ABSENT: abnormal gait, abnormal speech, confusion, dizziness, focal weakness, syncope Psychiatric: ABSENT: anxiety, depression, homidical ideation, suicidal ideation Endocrine: ABSENT: cold intolerance, heat intolerance, polydipsia, polyuria Hematologic/Lymphatic: ABSENT: easy bleeding, easy bruising, lymphadenopathy Allergic/Immunologic: ABSENT: seasonal rhinorrhea Physical Exam Vital Signs: Temp Pulse Resp BP Pulse Ox 99.4 F 126 H 27 H 113/83 100 08/16/19 11:30 08/16/19 15:20 08/16/19 15:01 08/16/19 15:00 08/16/19 15:01 Intake & Output 08/15/19 08/16/19 08/17/19 06:59 06:59 06:59 Intake Total 200 Balance 200 Weight 41.7 kg General appearance: PRESENT: severe distress, thin Head exam: PRESENT: atraumatic, normocephalic Eye exam: PRESENT: conjunctiva pink. ABSENT: scleral icterus Mouth exam: PRESENT: moist Neck exam: PRESENT: full ROM. ABSENT: carotid bruit, JVD, lymphadenopathy, thyromegaly Respiratory exam: PRESENT: decreased breath sounds, prolonged expiratory phas, rhonchi, wheezes Cardiovascular exam: PRESENT: RRR, +S1, +S2, tachycardia. ABSENT: diastolic murmur, systolic murmur Pulses: PRESENT: normal dorsalis pedis pul, +2 pedal pulses bilateral Vascular exam: ABSENT: pallor GI/Abdominal exam: PRESENT: normal bowel sounds, soft. ABSENT: distended, guarding, mass, organolmegaly, rebound, tenderness Rectal exam: PRESENT: deferred Extremities exam: ABSENT: pedal edema Neurological exam: PRESENT: alert, awake, oriented to person, oriented to place, oriented to time, oriented to situation, CN II-XII grossly intact. ABSENT: motor sensory deficit Psychiatric exam: PRESENT: agitated, anxious Skin exam: PRESENT: dry, warm Results Laboratory Results: 08/16/19 12:00 08/16/19 12:00 08/16/19 08/16/19 08/16/19 12:00 12:00 12:22 WBC 8.2 RBC 4.72 Hgb 13.4 Hct 40.9 MCV 87 MCH 28.4 MCHC 32.7 RDW 15.7 H Plt Count 413 Seg Neutrophils % 77.2 Carbonic Acid 1.95 H HCO3/H2CO3 Ratio 16:1 ABG pH 7.32 L ABG pCO2 64.9 H ABG pO2 154.6 H ABG HCO3 32.4 H ABG O2 Saturation 98.8 H ABG Base Excess 4.4 FiO2 2L Sodium 140.8 Potassium 4.1 Chloride 103 Carbon Dioxide 32 H Anion Gap 6 BUN 10 Creatinine 0.66 Est GFR ( Amer) > 60 Glucose 127 H Calcium 9.3 Total Bilirubin 0.6 AST 23 Alkaline Phosphatase 106 Total Protein 7.4 Albumin 3.9 08/16/19 12:00 Troponin I < 0.012 NT-Pro-B Natriuret Pep 469 H Impressions: Chest X-Ray 08/16/19 11:46 IMPRESSION: 38.7 mm suprahilar mass on the right. Chest CT 08/16/19 13:14 IMPRESSION: Solitary pulmonary mass suspicious for malignancy. Assessment & Plan - Diagnosis (1) Acute hypercapnic respiratory failure Is this a current diagnosis for this admission?: Yes Plan: See admitting attending physician orders for details about care plan. (2) COPD with exacerbation Is this a current diagnosis for this admission?: Yes Plan: See admitting attending physician orders for details about care plan. (3) Lung mass Is this a current diagnosis for this admission?: Yes Plan: See admitting attending physician orders for details about care plan. (4) HTN (hypertension) Qualifiers: Hypertension type: essential hypertension Qualified Code(s): I10 - Essential (primary) hypertension Is this a current diagnosis for this admission?: Yes Plan: See admitting attending physician orders for details about care plan. (5) HLD (hyperlipidemia) Qualifiers: Hyperlipidemia type: unspecified Qualified Code(s): E78.5 - Hyperlipidemia, unspecified Is this a current diagnosis for this admission?: Yes Plan: See admitting attending physician orders for details about care plan. (6) Chronic antral gastritis Is this a current diagnosis for this admission?: Yes Plan: See admitting attending physician orders for details about care plan. (7) Adult failure to thrive syndrome Is this a current diagnosis for this admission?: Yes Plan: See admitting attending physician orders for details about care plan. (8) Iron deficiency anemia Qualifiers: Iron deficiency anemia type: unspecified iron deficiency Qualified Code(s): D50.9 - Iron deficiency anemia, unspecified Is this a current diagnosis for this admission?: Yes Plan: See admitting attending physician orders for details about care plan. - Time Time Spent: 50 to 70 Minutes Medications reviewed and adjusted accordingly: Yes Anticipated discharge: Home, Home with Homehealth Within: Other - Inpatient Certification Based on my medical assessment, after consideration of the patient's comorbidities, presenting symptoms, or acuity I expect that the services needed warrant INPATIENT care.: Yes I certify that my determination is in accordance with my understanding of Medicare's requirements for reasonable and necessary INPATIENT services [42 CFR 412.3e].: Yes Medical Necessity: Significant Comorbidiites Make Outpatient Treatment Too Risky, Need Close Monitoring Due to Risk of Patient Decompensation, Need For IV Fluids, Need For Continuous Telemetry Monitoring, Need for Nebulizer Therapy and Monitoring of Response, Risk of Complication if Not Cared For in Hospital, Risk of Diagnosis Which Will Require Inpatient Eval/Care/Monitoring Post Hospital Care: D/C Handhole Machine Operator Documentation - Plan Summary Plan Summary: See admitting attending physician orders for details about care plan.
[2019-08-16] MEDS ORDERED: GUAIFENESIN SYRP 200 MG/10 ML UDC PO PRN (19:20)
[2019-08-16] MEDS: IPRATROPIUM/ALBUTEROL 0.5-2.5 MG/3 ML AMPUL NEB PRN (20:19)
[2019-08-16] MEDS: SIMVASTATIN 10 MG TABLET PO SCH (22:26)
[2019-08-16] MEDS: METHYLPREDNISOLONE INJ 125 MG/2 ML SDV IV SCH (22:26)
[2019-08-17] MEDS: PANTOPRAZOLE SODIUM 40 MG TABLET.DR PO SCH (05:41)
[2019-08-17] MEDS: METHYLPREDNISOLONE INJ 125 MG/2 ML SDV IV SCH ×3 (05:41→21:50)
[2019-08-17 05:51] LABS: INTERNATIONAL RATION (INR) 1.11; PROTHROMBIN TIME 14.4 SEC (11.4-15.4)
[2019-08-17 05:52] LABS: PARTIAL THROMBOPLASTIN TIME 32.6 SEC (23.5-35.8)
[2019-08-17 06:02] LABS: ABSOLUTE LYMPHOCYTES (AUTO) 0.3 10^3/uL (0.5-4.7); ABSOLUTE MONOCYTES (AUTO) 0.2 10^3/uL (0.1-1.4); ABSOLUTE NEUT (AUTO) 4.4 10^3/uL (1.7-8.2); BASOPHILS % (AUTO) 0.3 % (0-2); HEMATOCRIT 34.8 % (36.0-47.0); HEMOGLOBIN 11.5 g/dL (12.0-15.5); LYMPHOCYTES % (AUTO) 5.8 % (13-45); MEAN CORPUSCULAR HEMOGLOBIN 28.3 pg (27.0-33.4); MEAN CORPUSCULAR VOLUME 86 fl (80-97); MONOCYTES % (AUTO) 4.4 % (3-13); PLATELET COUNT 353 10^3/uL (150-450); RED BLOOD COUNT 4.06 10^6/uL (3.72-5.28); RED CELL DISTRIBUTION WIDTH 15.8 % (11.5-14.0); SEGMENTED NEUTROPHILS % (AUTO) 89.5 % (42-78); TOTAL CELLS COUNTED % (AUTO) 100 %; WHITE BLOOD COUNT 4.9 10^3/uL (4.0-10.5)
[2019-08-17 06:04] LABS: ALBUMIN 3.5 g/dL (3.5-5.0); ALKALINE PHOSPHATASE 90 U/L (38-126); ANION GAP 6 (5-19); ASPARTATE AMINO TRANSFERASE 17 U/L (14-36); BILIRUBIN,TOTAL 0.4 mg/dL (0.2-1.3); BLOOD UREA NITROGEN 18 mg/dL (7-20); CARBON DIOXIDE 30 mmol/L (22-30); CHLORIDE 103 mmol/L (98-107); GLUCOSE 135 mg/dL (75-110); TOTAL PROTEIN 6.8 g/dL (6.3-8.2)
[2019-08-17] MEDS: FERROUS SULFATE 325 MG TABLET PO SCH ×2 (09:16→17:02)
[2019-08-17] MEDS: ASCORBIC ACID 500 MG TABLET PO SCH (09:17)
[2019-08-17] MEDS: ENOXAPARIN SODIUM INJ 30 MG/0.3 ML DISP.SYRIN SUBCUT SCH (09:17)
[2019-08-17] MEDS ORDERED: ASCORBIC ACID 500 MG PO SCH (10:00)
--- NOTE | 2019-08-17 16:54 | PDOC PROGRESS REPORT ---
Subjective Progress Note for:: 08/17/19 Subjective:: Patient reported improvement in her breathing. Maintained on BiPAP support till this morning. No chest pain. No fever or chills. No nausea, vomiting or abdominal pain. Remain on supplemental oxygen via nasal cannula. Reason For Visit: ACUTE RESPIRATORY FAILURE WITH HYPERCAPNIA Physical Exam Vital Signs: Temp Pulse Resp BP Pulse Ox 98.1 F 112 H 18 99/63 L 100 08/17/19 13:25 08/17/19 15:43 08/17/19 15:43 08/17/19 13:25 08/17/19 15:43 Intake & Output 08/16/19 08/17/19 08/18/19 06:59 06:59 06:59 Intake Total 882 300 Balance 882 300 Weight 42 kg General appearance: PRESENT: mild distress, thin Head exam: PRESENT: atraumatic, normocephalic Eye exam: PRESENT: conjunctiva pink. ABSENT: scleral icterus Mouth exam: PRESENT: moist Respiratory exam: PRESENT: decreased breath sounds, prolonged expiratory phas, rhonchi Cardiovascular exam: PRESENT: RRR, +S1, +S2. ABSENT: diastolic murmur, rubs, systolic murmur Vascular exam: ABSENT: pallor GI/Abdominal exam: PRESENT: normal bowel sounds, soft. ABSENT: distended, guarding, mass, organolmegaly, rebound, tenderness Extremities exam: ABSENT: pedal edema Neurological exam: PRESENT: alert, awake, oriented to person, oriented to place, oriented to time, oriented to situation, CN II-XII grossly intact. ABSENT: motor sensory deficit Psychiatric exam: PRESENT: agitated - less, anxious - less Skin exam: PRESENT: dry, warm Results Laboratory Results: 08/17/19 05:31 08/17/19 05:31 08/17/19 08/17/19 05:31 05:31 WBC 4.9 RBC 4.06 Hgb 11.5 L Hct 34.8 L MCV 86 MCH 28.3 MCHC 33.0 RDW 15.8 H Plt Count 353 Seg Neutrophils % 89.5 H Sodium 139.2 Potassium 5.0 Chloride 103 Carbon Dioxide 30 Anion Gap 6 BUN 18 Creatinine 0.70 Est GFR ( Amer) > 60 Glucose 135 H Calcium 9.0 Total Bilirubin 0.4 AST 17 Alkaline Phosphatase 90 Total Protein 6.8 Albumin 3.5 08/16/19 12:00 Troponin I < 0.012 NT-Pro-B Natriuret Pep 469 H Impressions: Chest X-Ray 08/16/19 11:46 IMPRESSION: 38.7 mm suprahilar mass on the right. Chest CT 08/16/19 13:14 IMPRESSION: Solitary pulmonary mass suspicious for malignancy. Assessment & Plan - Diagnosis (1) Acute hypercapnic respiratory failure Is this a current diagnosis for this admission?: Yes (2) COPD with exacerbation Is this a current diagnosis for this admission?: Yes (3) Lung mass Is this a current diagnosis for this admission?: Yes (4) HTN (hypertension) Qualifiers: Hypertension type: essential hypertension Qualified Code(s): I10 - Essential (primary) hypertension Is this a current diagnosis for this admission?: Yes (5) HLD (hyperlipidemia) Qualifiers: Hyperlipidemia type: unspecified Qualified Code(s): E78.5 - Hyperlipidemia, unspecified Is this a current diagnosis for this admission?: Yes (6) Chronic antral gastritis Is this a current diagnosis for this admission?: Yes (7) Adult failure to thrive syndrome Is this a current diagnosis for this admission?: Yes (8) Iron deficiency anemia Qualifiers: Iron deficiency anemia type: unspecified iron deficiency Qualified Code(s): D50.9 - Iron deficiency anemia, unspecified Is this a current diagnosis for this admission?: Yes - Time Time Spent with patient: 25-34 minutes Level of Care: IMCU Medications reviewed and adjusted accordingly: Yes Anticipated discharge: Home with Homehealth Within: Other - Inpatient Certification Based on my medical assessment, after consideration of the patient's comorbidities, presenting symptoms, or acuity I expect that the services needed warrant INPATIENT care.: Yes I certify that my determination is in accordance with my understanding of Medicare's requirements for reasonable and necessary INPATIENT services [42 CFR 412.3e].: Yes Medical Necessity: Significant Comorbidiites Make Outpatient Treatment Too Risky, Need Close Monitoring Due to Risk of Patient Decompensation, Need For IV Fluids, Need For Continuous Telemetry Monitoring, Need for Nebulizer Therapy and Monitoring of Response, Risk of Complication if Not Cared For in Hospital, Risk of Diagnosis Which Will Require Inpatient Eval/Care/Monitoring Post Hospital Care: D/C Manager Office Documentation - Plan Summary Plan Summary: Continue current medication management. Follow up on possible CT guided percutaneous biopsy of her right upper lobe lesion next week.
[2019-08-17] MEDS: SIMVASTATIN 10 MG TABLET PO SCH (21:50)
[2019-08-18] MEDS: ACETAMINOPHEN 325 MG TABLET PO PRN (00:48)
[2019-08-18] MEDS: PANTOPRAZOLE SODIUM 40 MG TABLET.DR PO SCH (05:49)
[2019-08-18] MEDS: METHYLPREDNISOLONE INJ 125 MG/2 ML SDV IV SCH ×3 (05:49→22:15)
[2019-08-18] MEDS: ENOXAPARIN SODIUM INJ 30 MG/0.3 ML DISP.SYRIN SUBCUT SCH (09:26)
[2019-08-18] MEDS: FERROUS SULFATE 325 MG TABLET PO SCH ×2 (09:26→17:03)
[2019-08-18] MEDS: ASCORBIC ACID 500 MG TABLET PO SCH (09:26)
[2019-08-18] MEDS: IPRATROPIUM/ALBUTEROL 0.5-2.5 MG/3 ML AMPUL NEB PRN (16:48)
--- NOTE | 2019-08-18 17:56 | PDOC PROGRESS REPORT ---
Subjective Progress Note for:: 08/18/19 Subjective:: Patient seen by the bedside, she is status post bilateral mastectomy due to cancer of the breast she was admitted for the management of acute respiratory failure due to acute COPD exacerbation, CT scan of the chest demonstrated a left upper lobe mass, she is scheduled for a CT-guided needle biopsy next week. This was explained to the patient today. History of tobacco use, she stated that she has not smoked in many years Reason For Visit: ACUTE RESPIRATORY FAILURE WITH HYPERCAPNIA Physical Exam Vital Signs: Temp Pulse Resp BP Pulse Ox 98.0 F 118 H 20 122/73 94 08/18/19 17:10 08/18/19 17:10 08/18/19 17:10 08/18/19 17:10 08/18/19 17:10 Intake & Output 08/17/19 08/18/19 08/19/19 06:59 06:59 06:59 Intake Total 882 1100 480 Output Total 600 500 Balance 882 500 -20 Weight 42 kg 40.1 kg General appearance: PRESENT: no acute distress Eye exam: PRESENT: PERRLA Respiratory exam: PRESENT: clear to auscultation saqib Cardiovascular exam: PRESENT: +S1, +S2 GI/Abdominal exam: PRESENT: soft Neurological exam: PRESENT: alert, CN II-XII grossly intact Results Laboratory Results: 08/17/19 05:31 08/17/19 05:31 08/16/19 12:00 Troponin I < 0.012 NT-Pro-B Natriuret Pep 469 H Impressions: Chest X-Ray 08/16/19 11:46 IMPRESSION: 38.7 mm suprahilar mass on the right. Chest CT 08/16/19 13:14 IMPRESSION: Solitary pulmonary mass suspicious for malignancy. Assessment & Plan - Diagnosis (1) Acute hypercapnic respiratory failure Is this a current diagnosis for this admission?: Yes Plan: Continue present treatment thank you (2) COPD with exacerbation Is this a current diagnosis for this admission?: Yes (3) Lung mass Is this a current diagnosis for this admission?: Yes - Time Time Spent with patient: 25-34 minutes Level of Care: [facility]
[2019-08-18] MEDS: SIMVASTATIN 10 MG TABLET PO SCH (22:15)
[2019-08-19] MEDS: METHYLPREDNISOLONE INJ 125 MG/2 ML SDV IV SCH ×3 (05:23→21:07)
[2019-08-19] MEDS: PANTOPRAZOLE SODIUM 40 MG TABLET.DR PO SCH (05:23)
[2019-08-19] MEDS: ENOXAPARIN SODIUM INJ 30 MG/0.3 ML DISP.SYRIN SUBCUT SCH (09:39)
[2019-08-19] MEDS: ASCORBIC ACID 500 MG TABLET PO SCH (10:09)
[2019-08-19] MEDS: FERROUS SULFATE 325 MG TABLET PO SCH ×2 (10:09→18:02)
--- NOTE | 2019-08-19 18:39 | PDOC PROGRESS REPORT ---
Subjective Progress Note for:: 08/19/19 Subjective:: Patient seen by the bedside, she is status post bilateral mastectomy due to cancer of the breast she was admitted for the management of acute respiratory failure due to acute COPD exacerbation, CT scan of the chest demonstrated a left upper lobe mass, she is scheduled for a CT-guided needle biopsy next week. This was explained to the patient today. History of tobacco use, she stated that she has not smoked in many years Reason For Visit: ACUTE RESPIRATORY FAILURE WITH HYPERCAPNIA Physical Exam Vital Signs: Temp Pulse Resp BP Pulse Ox 98.0 F 105 H 21 H 126/82 H 100 08/19/19 15:00 08/19/19 15:00 08/19/19 15:00 08/19/19 15:00 08/19/19 15:00 Intake & Output 08/18/19 08/19/19 08/20/19 06:59 06:59 06:59 Intake Total 1100 1704 1545 Output Total 600 1300 750 Balance 500 404 795 Weight 40.1 kg 40.8 kg General appearance: PRESENT: no acute distress Eye exam: PRESENT: PERRLA Respiratory exam: PRESENT: clear to auscultation saqib Cardiovascular exam: PRESENT: +S1, +S2 GI/Abdominal exam: PRESENT: soft Neurological exam: PRESENT: alert, CN II-XII grossly intact Results Laboratory Results: 08/17/19 05:31 08/17/19 05:31 08/16/19 12:10 Blood Blood Culture (PCR) - Final 08/16/19 12:00 Troponin I < 0.012 NT-Pro-B Natriuret Pep 469 H Impressions: Chest X-Ray 08/16/19 11:46 IMPRESSION: 38.7 mm suprahilar mass on the right. Chest CT 08/16/19 13:14 IMPRESSION: Solitary pulmonary mass suspicious for malignancy. Assessment & Plan - Diagnosis (1) Acute hypercapnic respiratory failure Is this a current diagnosis for this admission?: Yes Plan: Continue present treatment (2) COPD with exacerbation Is this a current diagnosis for this admission?: Yes (3) Lung mass Is this a current diagnosis for this admission?: Yes Plan: schedule for lung biopsy - Time Time Spent with patient: 25-34 minutes Level of Care: IMCU Medications reviewed and adjusted accordingly: Yes
[2019-08-19 19:40] LABS: INTERNATIONAL RATION (INR) 1.01; PARTIAL THROMBOPLASTIN TIME 28.3 SEC (23.5-35.8); PROTHROMBIN TIME 13.3 SEC (11.4-15.4)
[2019-08-19] MEDS: SIMVASTATIN 10 MG TABLET PO SCH (21:07)
[2019-08-20] MEDS: PANTOPRAZOLE SODIUM 40 MG TABLET.DR PO SCH (05:35)
[2019-08-20] MEDS: METHYLPREDNISOLONE INJ 125 MG/2 ML SDV IV SCH ×3 (05:35→21:29)
[2019-08-20] MEDS ORDERED: FENTANYL CITRATE INJ/PF 100 MCG/2 ML AMPUL ONE (08:40)
[2019-08-20] MEDS ORDERED: MIDAZOLAM 2 MG/2 ML INJ ONE (08:40)
[2019-08-20] MEDS: ENOXAPARIN SODIUM INJ 30 MG/0.3 ML DISP.SYRIN SUBCUT SCH (10:06)
[2019-08-20] MEDS: FERROUS SULFATE 325 MG TABLET PO SCH ×2 (10:13→17:47)
[2019-08-20] MEDS: ASCORBIC ACID 500 MG TABLET PO SCH (10:13)
--- NOTE | 2019-08-20 11:39 | RADIOLOGY REPORT (SQ) ---
EXAM DESCRIPTION: CHEST SINGLE VIEW IMAGES COMPLETED DATE/TIME: 08/20/2019 9:53 am REASON FOR STUDY: POST LUNG BIOPSY COMPARISON: Same day CT EXAM PARAMETERS: NUMBER OF VIEWS: One view. TECHNIQUE: Single frontal radiographic view of the chest acquired. RADIATION DOSE: NA LIMITATIONS: None. FINDINGS: LUNGS AND PLEURA: Unchanged right upper lobe mass with post biopsy hemorrhage. Note appre ciable pneumothorax. Emphysematous change bilaterally with flattening of the hemidiaphragms and hype rinflation. MEDIASTINUM AND HILAR STRUCTURES: No masses. Contour normal. HEART AND VASCULAR STRUCTURES: Heart normal in size. Normal vasculature. BONES: No acute findings. HARDWARE: None in the chest. OTHER: No other significant finding. IMPRESSION: No pneumothorax post right upper lobe biopsy. Post biopsy hemorrhage within the right u pper lung. TECHNICAL DOCUMENTATION: JOB ID: [id number] 2010 [employer]- All Rights Reserved Reading location - IP/workstation name: [email or web address]
--- NOTE | 2019-08-20 11:47 | RADIOLOGY REPORT (SQ) ---
EXAM DESCRIPTION: CT BIOPSY LUNG/MEDIASTINUM IMAGES COMPLETED DATE/TIME: 08/20/2019 9:30 am REASON FOR STUDY: lung mass COMPARISON: CT 08/16/2019 TECHNIQUE: CT guided biopsy of the right upper lobe pulmonary nodule performed with conscious sedati on. CT Fluoroscopy Time: 3.[address] scanners at this facility use dose modulation, iterative reconstruction, and/or weight based d osing when appropriate to reduce radiation dose to as low as reasonably achievable (ALARA). [facility]: Dose Right [facility]: CareDose [facility]: Dose Right [facility]: Teradose 4D [facility]: [employer] RADIATION DOSE: CT Rad equipment meets quality standard of care and radiation dose reduction techni ques were employed. CTDIvol: 4.0 - 7.6 mGy. DLP: 91 mGy-cm.mGy. FINDINGS: After obtaining informed consent and explaining the risks and benefits of conscious sedati on,the patient agreed to the procedure. Prior to the procedure, a time out was performed to verify th e patient's identity and planned procedure. IV sedation was administered and physician direction by the registered nurse using 1 milligrams of Ve rsed and 25 micrograms of fentanyl, for conscious sedation. Physiologic monitoring was provided befor e, during, and after sedation. The total sedation time was 30 minutes. Documentation face to face time, the performing proceduralist, spent monitoring the patient: [address] scanning was performed to localize the percutaneous site for the biopsy approach. After sterile skin prep and local lidocaine for skin and deep tissue anesthesia, a coaxial biopsy nee dle was used to obtain multiple 20 gauge cores of tissue from the right upper lobe pulmonary nodule. The biopsy tissue was submitted to the lab in formalin. There were no immediate complications. Pathology is pending at the time of dictation. IMPRESSION: CT GUIDED BIOPSY OF THE RIGHT UPPER LOBE PULMONARY NODULE PERFORMED WITHOUT IMMEDIATE CO MPLICATION. PATHOLOGY PENDING. COMMENT: Quality ID [id number]: Final reports for procedures using fluoroscopy that document radiation exp osure indices, or exposure time and number of fluorographic images (if radiation exposure indices are not available) Patient medication list reviewed: Yes- Quality ID# [id number]:Eligible professional attests to documenting i n the medical record they obtained, updated, or reviewed the patient's current medications.. TECHNICAL DOCUMENTATION: JOB ID: [id number] Quality ID# [id number]: Final reports with documentation of one or more dose reduction techniques (e.g., Aut omated exposure control, adjustment of the mA and/or kV according to patient size, use of iterative r econstruction technique) 2010 [employer]- All Rights Reserved Reading location - IP/workstation name: [email or web address]
--- NOTE | 2019-08-20 12:44 | RADIOLOGY REPORT (SQ) ---
EXAM DESCRIPTION: CHEST SINGLE VIEW IMAGES COMPLETED DATE/TIME: 08/20/2019 12:25 pm REASON FOR STUDY: POST LUNG BIOPSY, 2 HOUR FILM AT 1150 COMPARISON: CT chest 08/16/2019 CT-guided lung biopsy 08/20/2019 AP chest 08/20/2019 0950 hours EXAM PARAMETERS: NUMBER OF VIEWS: One view. TECHNIQUE: Single frontal radiographic view of the chest acquired. RADIATION DOSE: NA LIMITATIONS: None. FINDINGS: LUNGS AND PLEURA: 2 hours post right upper lobe mass CT-guided lung biopsy. No pneumothor ax. No right pleural effusion. Right upper lobe mass is unchanged. Remainder of the lungs are well inflated and clear. No left pleural effusion or pneumothorax. MEDIASTINUM AND HILAR STRUCTURES: No masses. Contour normal. HEART AND VASCULAR STRUCTURES: Heart normal in size. Normal vasculature. BONES: Lower cervical fusion hardware HARDWARE: None in the chest. OTHER: No other significant finding. IMPRESSION: No pneumothorax [address]-guided right lung biopsy Unchanged right upper lobe mass TECHNICAL DOCUMENTATION: JOB ID: [id number] 2010 [employer]- All Rights Reserved Reading location - IP/workstation name: [email or web address]
--- NOTE | 2019-08-20 20:15 | PDOC PROGRESS REPORT ---
Subjective Progress Note for:: 08/20/19 Subjective:: OOB in chair with supplemental oxygen via nasal cannula in use. s/p right upper lobe mass biopsy via CT guidance. She denied any chest pain. No nausea or vomiting. No abdominal pain. Tolerating oral feeding. Reason For Visit: ACUTE RESPIRATORY FAILURE WITH HYPERCAPNIA Physical Exam Vital Signs: Temp Pulse Resp BP Pulse Ox 97.6 F 103 H 16 120/93 H 100 08/20/19 10:03 08/20/19 14:00 08/20/19 10:03 08/20/19 10:03 08/20/19 10:03 Intake & Output 08/19/19 08/20/19 08/21/19 06:59 06:59 06:59 Intake Total 1704 1845 460 Output Total 1300 1475 400 Balance 404 370 60 Weight 40.8 kg 41.8 kg Physical Exam: General appearance: PRESENT: mild distress, thin Head exam: PRESENT: atraumatic, normocephalic Eye exam: PRESENT: conjunctiva pink. ABSENT: pallor, scleral icterus Mouth exam: PRESENT: moist Respiratory exam: PRESENT: decreased breath sounds, minimal rhonchi Cardiovascular exam: PRESENT: RRR, +S1, +S2. ABSENT: diastolic murmur, rubs, systolic murmur GI/Abdominal exam: PRESENT: normal bowel sounds, soft. ABSENT: distended, guarding, mass, organomegaly, rebound, tenderness Extremities exam: ABSENT: pedal edema Neurological exam: PRESENT: alert, awake, oriented to person, oriented to place, oriented to time, oriented to situation, CN II-XII grossly intact. ABSENT: motor sensory deficit Psychiatric exam: PRESENT: agitated - less, anxious - less Skin exam: PRESENT: dry, warm Results Laboratory Results: 08/17/19 05:31 08/17/19 05:31 08/16/19 12:10 Blood Blood Culture (PCR) - Final 08/16/19 12:00 Troponin I < 0.012 NT-Pro-B Natriuret Pep 469 H Impressions: Chest CT 08/16/19 13:14 IMPRESSION: Solitary pulmonary mass suspicious for malignancy. Lung Biopsy CT 08/20/19 00:00 IMPRESSION: CT GUIDED BIOPSY OF THE RIGHT UPPER LOBE PULMONARY NODULE PERFORMED WITHOUT IMMEDIATE COMPLICATION. PATHOLOGY PENDING. Chest X-Ray 08/20/19 11:50 IMPRESSION: No pneumothorax [address]-guided right lung biopsy Unchanged right upper lobe mass Assessment & Plan - Diagnosis (1) Acute hypercapnic respiratory failure Is this a current diagnosis for this admission?: Yes (2) COPD with exacerbation Is this a current diagnosis for this admission?: Yes (3) Lung mass Is this a current diagnosis for this admission?: Yes (4) HTN (hypertension) Qualifiers: Hypertension type: essential hypertension Qualified Code(s): I10 - Essential (primary) hypertension Is this a current diagnosis for this admission?: Yes (5) HLD (hyperlipidemia) Qualifiers: Hyperlipidemia type: unspecified Qualified Code(s): E78.5 - Hyperlipidemia, unspecified Is this a current diagnosis for this admission?: Yes (6) Chronic antral gastritis Is this a current diagnosis for this admission?: Yes (7) Adult failure to thrive syndrome Is this a current diagnosis for this admission?: Yes (8) Iron deficiency anemia Qualifiers: Iron deficiency anemia type: unspecified iron deficiency Qualified Code(s): D50.9 - Iron deficiency anemia, unspecified Is this a current diagnosis for this admission?: Yes - Time Time Spent with patient: 25-34 minutes Level of Care: IMCU Medications reviewed and adjusted accordingly: Yes Anticipated discharge: Home with Homehealth Within: Other - Inpatient Certification Based on my medical assessment, after consideration of the patient's comorbidities, presenting symptoms, or acuity I expect that the services needed warrant INPATIENT care.: Yes I certify that my determination is in accordance with my understanding of Medicare's requirements for reasonable and necessary INPATIENT services [42 CFR 412.3e].: Yes Medical Necessity: Significant Comorbidiites Make Outpatient Treatment Too Risky, Need Close Monitoring Due to Risk of Patient Decompensation, Need For C ontinuous Telemetry Monitoring, Need for Nebulizer Therapy and Monitoring of Response, Risk of Complication if Not Cared For in Hospital, Risk of Diagnosis Which Will Require Inpatient Eval/Care/Monitoring Post Hospital Care: D/C Premium Service Representative Documentation - Plan Summary Plan Summary: D/C IV Solu Medrol to 80 mg q 8 hours. Maintain on all other current medication management. Follow up on pathology report of her lung biopsy.
[2019-08-20] MEDS: ACETAMINOPHEN 325 MG TABLET PO PRN (21:27)
[2019-08-20] MEDS: SIMVASTATIN 10 MG TABLET PO SCH (21:29)
[2019-08-21 06:17] LABS: HEMATOCRIT 36.5 % (36.0-47.0); HEMOGLOBIN 11.8 g/dL (12.0-15.5); MEAN CORPUSCULAR HEMOGLOBIN 28.1 pg (27.0-33.4); MEAN CORPUSCULAR HGB CONC 32.2 g/dL (32.0-36.0); MEAN CORPUSCULAR VOLUME 87 fl (80-97); PLATELET COUNT 300 10^3/uL (150-450); RED BLOOD COUNT 4.19 10^6/uL (3.72-5.28); RED CELL DISTRIBUTION WIDTH 15.9 % (11.5-14.0)
[2019-08-21] MEDS: PANTOPRAZOLE SODIUM 40 MG TABLET.DR PO SCH (06:35)
[2019-08-21] MEDS: ACETAMINOPHEN 325 MG TABLET PO PRN (06:35)
[2019-08-21] MEDS: METHYLPREDNISOLONE INJ 125 MG/2 ML SDV IV SCH ×3 (06:36→21:24)
[2019-08-21 06:40] LABS: ALBUMIN 3.1 g/dL (3.5-5.0); ALKALINE PHOSPHATASE 74 U/L (38-126); ASPARTATE AMINO TRANSFERASE 15 U/L (14-36); BILIRUBIN,TOTAL 0.4 mg/dL (0.2-1.3); BLOOD UREA NITROGEN 27 mg/dL (7-20); CALCIUM 9.1 mg/dL (8.4-10.2); GLUCOSE 135 mg/dL (75-110); POTASSIUM 4.2 mmol/L (3.6-5.0); TOTAL PROTEIN 5.7 g/dL (6.3-8.2)
[2019-08-21 06:46] LABS: CHLORIDE 99 mmol/L (98-107)
[2019-08-21 07:07] LABS: ABSOLUTE LYMPHOCYTES# (MANUAL) 0.4 10^3/uL (0.5-4.7); ABSOLUTE MONOCYTES # (MANUAL) 0.2 10^3/uL (0.1-1.4); BASOPHILS % (MANUAL) 0 % (0-2); EOSINOPHILS % (MANUAL) 0 % (0-6); LYMPHOCYTES % (MANUAL) 4 % (13-45); MONOCYTES % (MANUAL) 2 % (3-13); SEGMENTED NEUTROPHILS % (MAN) 94 % (42-78); TOTAL CELLS COUNTED 100
[2019-08-21 07:09] LABS: ANISOCYTOSIS SLIGHT; OVALOCYTES SLIGHT; PLATELET COMMENT ADEQUATE; TARGET CELLS SLIGHT; TEAR DROP CELLS SLIGHT
[2019-08-21 07:10] LABS: ANION GAP 1 (5-19)
[2019-08-21 07:13] LABS: CARBON DIOXIDE 40 mmol/L (22-30)
[2019-08-21] MEDS: FERROUS SULFATE 325 MG TABLET PO SCH (10:09)
[2019-08-21] MEDS: ASCORBIC ACID 500 MG TABLET PO SCH (10:09)
[2019-08-21] MEDS: ENOXAPARIN SODIUM INJ 30 MG/0.3 ML DISP.SYRIN SUBCUT SCH (10:13)
--- NOTE | 2019-08-21 18:24 | PDOC PROGRESS REPORT ---
Subjective Progress Note for:: 08/21/19 Subjective:: Patient denied any chest pain. Breathing remain mostly labored today. She remain on supplemental oxygen via nasal cannula. No nausea or vomiting. No abdominal pain. I discussed her pathology findings with Dr. Cunha, pathologist, earlier today. She does have primary adenocarcinoma of the lung. Reason For Visit: ACUTE RESPIRATORY FAILURE WITH HYPERCAPNIA Physical Exam Vital Signs: Temp Pulse Resp BP Pulse Ox 97.8 F 106 H 16 141/86 H 98 08/21/19 11:55 08/21/19 14:00 08/21/19 11:55 08/21/19 11:55 08/21/19 11:55 Intake & Output 08/20/19 08/21/19 08/22/19 06:59 06:59 06:59 Intake Total 1845 1090 Output Total 1475 975 Balance 370 115 Weight 41.8 kg 40 kg Physical Exam: General appearance: PRESENT: mild distress, thin Head exam: PRESENT: atraumatic, normocephalic Eye exam: PRESENT: conjunctiva pink. ABSENT: pallor, scleral icterus Mouth exam: PRESENT: moist Respiratory exam: PRESENT: decreased breath sounds, scattered bilateral rhonchi Cardiovascular exam: PRESENT: RRR, +S1, +S2. ABSENT: diastolic murmur, rubs, systolic murmur GI/Abdominal exam: PRESENT: normal bowel sounds, soft. ABSENT: distended, guarding, mass, organomegaly, rebound, tenderness Extremities exam: ABSENT: pedal edema Neurological exam: PRESENT: alert, awake, oriented to person, oriented to place, oriented to time, oriented to situation, CN II-XII grossly intact. ABSENT: motor sensory deficit Psychiatric exam: PRESENT: agitated - less, anxious - less Skin exam: PRESENT: dry, warm Results Laboratory Results: 08/21/19 05:18 08/21/19 05:18 08/21/19 08/21/19 05:18 05:18 WBC 10.0 RBC 4.19 Hgb 11.8 L Hct 36.5 MCV 87 MCH 28.1 MCHC 32.2 RDW 15.9 H Plt Count 300 Seg Neutrophils % Not Reportable Sodium 139.9 Potassium 4.2 Chloride 99 Carbon Dioxide 40 H* Anion Gap 1 L BUN 27 H Creatinine 0.71 Est GFR ( Amer) > 60 Glucose 135 H Calcium 9.1 Total Bilirubin 0.4 AST 15 Alkaline Phosphatase 74 Total Protein 5.7 L Albumin 3.1 L 08/16/19 14:58 Blood Blood Culture - Final NO GROWTH IN 5 DAYS 08/16/19 12:10 Blood Blood Culture (PCR) - Final 08/16/19 12:10 Blood Blood Culture - Final Corynebacterium Species 08/16/19 12:00 Troponin I < 0.012 NT-Pro-B Natriuret Pep 469 H Impressions: Chest CT 08/16/19 13:14 IMPRESSION: Solitary pulmonary mass suspicious for malignancy. Lung Biopsy CT 08/20/19 00:00 IMPRESSION: CT GUIDED BIOPSY OF THE RIGHT UPPER LOBE PULMONARY NODULE PERFORMED WITHOUT IMMEDIATE COMPLICATION. PATHOLOGY PENDING. Chest X-Ray 08/20/19 11:50 IMPRESSION: No pneumothorax [address]-guided right lung biopsy Unchanged right upper lobe mass Assessment & Plan - Diagnosis (1) Acute hypercapnic respiratory failure Is this a current diagnosis for this admission?: Yes Plan: Emphasized need for BiPAP support while sleeping in view of worsening hypercapnia. (2) COPD with exacerbation Is this a current diagnosis for this admission?: Yes Plan: Emphasized need for BiPAP support while sleeping in view of worsening hypercapnia. (3) Adenocarcinoma of lung Qualifiers: Laterality: right Qualified Code(s): C34.91 - Malignant neoplasm of unspecified part of right bronchus or lung Is this a current diagnosis for this admission?: Yes Plan: I had extensive discussion with patient regarding her newly diagnosed primary right upper lobe adenocarcinoma and associated poor prognosis in view of her associated morbidities. She is agreeable with medical oncology consultation for further evaluation and management. (4) HTN (hypertension) Qualifiers: Hypertension type: essential hypertension Qualified Code(s): I10 - Essential (primary) hypertension Is this a current diagnosis for this admission?: Yes (5) HLD (hyperlipidemia) Qualifiers: Hyperlipidemia type: unspecified Qualified Code(s): E78.5 - Hyperlipidemia, unspecified Is this a current diagnosis for this admission?: Yes (6) Chronic antral gastritis Is this a current diagnosis for this admission?: Yes (7) Adult failure to thrive syndrome Is this a current diagnosis for this admission?: Yes (8) Iron deficiency anemia Qualifiers: Iron deficiency anemia type: unspecified iron deficiency Qualified Code(s): D50.9 - Iron deficiency anemia, unspecified Is this a current diagnosis for this admission?: Yes - Time Time Spent with patient: 25-34 minutes Level of Care: IMCU Medications reviewed and adjusted accordingly: Yes Anticipated discharge: Home with Homehealth Within: Other - Inpatient Certification Based on my medical assessment, after consideration of the patient's comorbidities, presenting symptoms, or acuity I expect that the services needed warrant INPATIENT care.: Yes I certify that my determination is in accordance with my understanding of Medicare's requirements for reasonable and necessary INPATIENT services [42 CFR 412.3e].: Yes Medical Necessity: Significant Comorbidiites Make Outpatient Treatment Too Risky, Need Close Monitoring Due to Risk of Patient Decompensation, Need For Continuous Telemetry Monitoring, Need for Nebulizer Therapy and Monitoring of Response, Risk of Complication if Not Cared For in Hospital, Risk of Diagnosis Which Will Require Inpatient Eval/Care/Monitoring Post Hospital Care: D/C Tabber Documentation - Plan Summary Plan Summary: Continue current medication management. Request medical oncology consultation with Dr. Barboza for her newly diagnosed primary lung adenocarcinoma.
[2019-08-21] MEDS: SIMVASTATIN 10 MG TABLET PO SCH (21:23)
[2019-08-22] MEDS: ACETAMINOPHEN 325 MG TABLET PO PRN (03:13)
[2019-08-22] MEDS: PANTOPRAZOLE SODIUM 40 MG TABLET.DR PO SCH (06:32)
[2019-08-22] MEDS: METHYLPREDNISOLONE INJ 125 MG/2 ML SDV IV SCH ×3 (06:32→21:01)
[2019-08-22] MEDS: FERROUS SULFATE 325 MG TABLET PO SCH ×2 (07:00→09:25)
[2019-08-22] MEDS: ENOXAPARIN SODIUM INJ 30 MG/0.3 ML DISP.SYRIN SUBCUT SCH (09:25)
[2019-08-22] MEDS: ASCORBIC ACID 500 MG TABLET PO SCH (09:25)
--- NOTE | 2019-08-22 18:14 | PDOC PROGRESS REPORT ---
Subjective Progress Note for:: 08/22/19 Subjective:: Patient denied any chest pain. Remain on supplemental oxygen via nasal cannula. No fever or chills. No nausea or vomiting. No abdominal pain. Reason For Visit: ACUTE RESPIRATORY FAILURE WITH HYPERCAPNIA Physical Exam Vital Signs: Temp Pulse Resp BP Pulse Ox 98.0 F 115 H 19 168/100 H 98 08/22/19 07:25 08/22/19 07:25 08/22/19 07:25 08/22/19 07:25 08/22/19 07:25 Intake & Output 08/21/19 08/22/19 08/23/19 06:59 06:59 06:59 Intake Total 1090 2010 Output Total 975 1200 Balance 115 810 Weight 40 kg 43 kg Physical Exam: General appearance: PRESENT: mild distress, thin Head exam: PRESENT: atraumatic, normocephalic Eye exam: PRESENT: conjunctiva pink. ABSENT: pallor, scleral icterus Mouth exam: PRESENT: moist Respiratory exam: PRESENT: decreased breath sounds, minimal scattered rhonchi Cardiovascular exam: PRESENT: RRR, +S1, +S2. ABSENT: diastolic murmur, rubs, systolic murmur GI/Abdominal exam: PRESENT: normal bowel sounds, soft. ABSENT: distended, guarding, mass, organomegaly, rebound, tenderness Extremities exam: ABSENT: pedal edema Neurological exam: PRESENT: alert, awake, oriented to person, oriented to place, oriented to time, oriented to situation, CN II-XII grossly intact. ABSENT: motor sensory deficit Psychiatric exam: PRESENT: agitated - less, anxious - less Skin exam: PRESENT: dry, warm Results Laboratory Results: 08/21/19 05:18 08/21/19 05:18 08/16/19 14:58 Blood Blood Culture - Final NO GROWTH IN 5 DAYS 08/16/19 12:10 Blood Blood Culture (PCR) - Final 08/16/19 12:10 Blood Blood Culture - Final Corynebacterium Species 08/16/19 12:00 Troponin I < 0.012 NT-Pro-B Natriuret Pep 469 H Impressions: Chest CT 08/16/19 13:14 IMPRESSION: Solitary pulmonary mass suspicious for malignancy. Lung Biopsy CT 08/20/19 00:00 IMPRESSION: CT GUIDED BIOPSY OF THE RIGHT UPPER LOBE PULMONARY NODULE PERFORMED WITHOUT IMMEDIATE COMPLICATION. PATHOLOGY PENDING. Chest X-Ray 08/20/19 11:50 IMPRESSION: No pneumothorax [address]-guided right lung biopsy Unchanged right upper lobe mass Assessment & Plan - Diagnosis (1) Acute hypercapnic respiratory failure Is this a current diagnosis for this admission?: Yes (2) COPD with exacerbation Is this a current diagnosis for this admission?: Yes (3) Adenocarcinoma of lung Qualifiers: Laterality: right Qualified Code(s): C34.91 - Malignant neoplasm of unspecified part of right bronchus or lung Is this a current diagnosis for this admission?: Yes (4) HTN (hypertension) Qualifiers: Hypertension type: essential hypertension Qualified Code(s): I10 - Essential (primary) hypertension Is this a current diagnosis for this admission?: Yes (5) HLD (hyperlipidemia) Qualifiers: Hyperlipidemia type: unspecified Qualified Code(s): E78.5 - Hyperlipidemia, unspecified Is this a current diagnosis for this admission?: Yes (6) Chronic antral gastritis Is this a current diagnosis for this admission?: Yes (7) Adult failure to thrive syndrome Is this a current diagnosis for this admission?: Yes (8) Iron deficiency anemia Qualifiers: Iron deficiency anemia type: unspecified iron deficiency Qualified Code(s): D50.9 - Iron deficiency anemia, unspecified Is this a current diagnosis for this admission?: Yes - Time Time Spent with patient: 25-34 minutes Level of Care: IMCU Medications reviewed and adjusted accordingly: Yes Anticipated discharge: Home with Homehealth Within: Other - Inpatient Certification Based on my medical assessment, after consideration of the patient's comorbidities, presenting symptoms, or acuity I expect that the services needed warrant INPATIENT care.: Yes I certify that my determination is in accordance with my understanding of Medicare's requirements for reasonable and necessary INPATIENT services [42 CFR 412.3e].: Yes Medical Necessity: Significant Comorbidiites Make Outpatient Treatment Too Risky, Need Close Monitoring Due to Risk of Patient Decompensation, Need For Continuous Telemetry Monitoring, Need for Nebulizer Therapy and Monitoring of Re sponse, Risk of Complication if Not Cared For in Hospital, Risk of Diagnosis Which Will Require Inpatient Eval/Care/Monitoring Post Hospital Care: D/C Data Integration Analyst Documentation - Plan Summary Plan Summary: Decrease IV Solu Medrol to 60 mg q8 hours. Follow up on medical oncology consultation recommendations. 18:12 pm Decrease IV fluid rate to 50ml/hour. Follow up with medical oncology service . Her walking and resting pulse oximetry suggested need for supplemental oxygen upon discharge.
[2019-08-22] MEDS: IPRATROPIUM/ALBUTEROL 0.5-2.5 MG/3 ML AMPUL NEB PRN (20:47)
[2019-08-22] MEDS: SIMVASTATIN 10 MG TABLET PO SCH (21:02)
[2019-08-23] MEDS: ACETAMINOPHEN 325 MG TABLET PO PRN ×3 (01:52→21:53)
[2019-08-23] MEDS: NORMAL SALINE 1000 ML 1,000 ML IV PRN ×2 (01:53→21:54)
[2019-08-23] MEDS: METHYLPREDNISOLONE INJ 125 MG/2 ML SDV IV SCH (05:22)
[2019-08-23] MEDS: PANTOPRAZOLE SODIUM 40 MG TABLET.DR PO SCH (05:23)
[2019-08-23] MEDS: ASCORBIC ACID 500 MG TABLET PO SCH (10:00)
[2019-08-23] MEDS: ENOXAPARIN SODIUM INJ 30 MG/0.3 ML DISP.SYRIN SUBCUT SCH (10:01)
[2019-08-23] MEDS: FERROUS SULFATE 325 MG TABLET PO SCH ×4 (10:01→18:00)
--- NOTE | 2019-08-23 13:24 | PDOC PROGRESS REPORT ---
Subjective Progress Note for:: 08/23/19 Subjective:: No chest pain.Her breathing is fairly better today. Remain on supplemental oxygen via nasal cannula. No fever or chills. No nausea or vomiting. No abdominal pain. Reason For Visit: ACUTE RESPIRATORY FAILURE WITH HYPERCAPNIA Physical Exam Vital Signs: Temp Pulse Resp BP Pulse Ox 97.9 F 112 H 19 130/80 H 100 08/23/19 11:56 08/23/19 11:56 08/23/19 11:56 08/23/19 11:56 08/23/19 11:56 Intake & Output 08/22/19 08/23/19 08/24/19 06:59 06:59 06:59 Intake Total 2009 1600 480 Output Total 1200 1650 400 Balance 810 -50 80 Weight 43 kg 42.8 kg Physical Exam: General appearance: PRESENT: mild distress, thin Head exam: PRESENT: atraumatic, normocephalic Eye exam: PRESENT: conjunctiva pink. ABSENT: pallor, scleral icterus Mouth exam: PRESENT: moist Respiratory exam: PRESENT: decreased breath sounds, minimal scattered rhonchi Cardiovascular exam: PRESENT: RRR, +S1, +S2. ABSENT: diastolic murmur, rubs, sy stolic murmur GI/Abdominal exam: PRESENT: normal bowel sounds, soft. ABSENT: distended, guarding, mass, organomegaly, rebound, tenderness Extremities exam: ABSENT: pedal edema Neurological exam: PRESENT: alert, awake, oriented to person, oriented to place, oriented to time, oriented to situation, CN II-XII grossly intact. ABSENT: motor sensory deficit Psychiatric exam: PRESENT: agitated - less, anxious - less Skin exam: PRESENT: dry, warm Results Laboratory Results: 08/21/19 05:18 08/21/19 05:18 08/16/19 12:00 Troponin I < 0.012 NT-Pro-B Natriuret Pep 469 H Impressions: Chest CT 08/16/19 13:14 IMPRESSION: Solitary pulmonary mass suspicious for malignancy. Lung Biopsy CT 08/20/19 00:00 IMPRESSION: CT GUIDED BIOPSY OF THE RIGHT UPPER LOBE PULMONARY NODULE PERFORMED WITHOUT IMMEDIATE COMPLICATION. PATHOLOGY PENDING. Chest X-Ray 08/20/19 11:50 IMPRESSION: No pneumothorax [address]-guided right lung biopsy Unchanged right upper lobe mass Assessment & Plan - Diagnosis (1) Acute hypercapnic respiratory failure Is this a current diagnosis for this admission?: Yes (2) COPD with exacerbation Is this a current diagnosis for this admission?: Yes (3) Adenocarcinoma of lung Qualifiers: Laterality: right Qualified Code(s): C34.91 - Malignant neoplasm of unspecified part of right bronchus or lung Is this a current diagnosis for this admission?: Yes (4) HTN (hypertension) Qualifiers: Hypertension type: essential hypertension Qualified Code(s): I10 - Essential (primary) hypertension Is this a current diagnosis for this admission?: Yes (5) HLD (hyperlipidemia) Qualifiers: Hyperlipidemia type: unspecified Qualified Code(s): E78.5 - Hyperlipidemia, unspecified Is this a current diagnosis for this admission?: Yes (6) Chronic antral gastritis Is this a current diagnosis for this admission?: Yes (7) Adult failure to thrive syndrome Is this a current diagnosis for this admission?: Yes (8) Iron deficiency anemia Qualifiers: Iron deficiency anemia type: unspecified iron deficiency Qualified Code(s): D50.9 - Iron deficiency anemia, unspecified Is this a current diagnosis for this admission?: Yes - Time Time Spent with patient: 25-34 minutes Level of Care: IMCU Medications reviewed and adjusted accordingly: Yes Anticipated discharge: Home with Homehealth Within: Other - Inpatient Certification Based on my medical assessment, after consideration of the patient's comorbidities, presenting symptoms, or acuity I expect that the services needed warrant INPATIENT care.: Yes I certify that my determination is in accordance with my understanding of Medicare's requirements for reasonable and necessary INPATIENT services [42 CFR 412.3e].: Yes Medical Necessity: Significant Comorbidiites Make Outpatient Treatment Too Risky, Need Close Monitoring Due to Risk of Patient Decompensation, Need For IV Fluids, Need For Continuous Telemetry Monitoring, Need for Nebulizer Therapy and Monitoring of Response, Risk of Complication if Not Cared For in Hospital, Risk of Diagnosis Which Will Require Inpatient Eval/Care/Monitoring Post Hospital Care: D/C Paper Mill Superintendent Documentation - Plan Summary Plan Summary: Continue current mediction management. Decrease IV Solu Medrol to 40 mg q 8hours. Follow up on medical oncology consultation request.
[2019-08-23] MEDS ORDERED: METHYLPREDNISOLONE INJ 125 MG/2 ML SDV IV SCH (14:00)
[2019-08-23] MEDS: METHYLPREDNISOLONE INJ 40 MG/1 ML SDV IV SCH ×2 (14:26→21:53)
[2019-08-23] MEDS: SIMVASTATIN 10 MG TABLET PO SCH (21:53)
[2019-08-24] MEDS: METHYLPREDNISOLONE INJ 40 MG/1 ML SDV IV SCH ×3 (05:19→22:44)
[2019-08-24] MEDS: PANTOPRAZOLE SODIUM 40 MG TABLET.DR PO SCH (05:19)
[2019-08-24] MEDS: ACETAMINOPHEN 325 MG TABLET PO PRN ×2 (05:20→22:43)
[2019-08-24] MEDS: ASCORBIC ACID 500 MG TABLET PO SCH (10:16)
[2019-08-24] MEDS: FERROUS SULFATE 325 MG TABLET PO SCH ×2 (10:17→17:37)
[2019-08-24] MEDS: ENOXAPARIN SODIUM INJ 30 MG/0.3 ML DISP.SYRIN SUBCUT SCH (10:18)
[2019-08-24 10:48] LABS: ABSOLUTE RETICS # 0.086 10^6/uL (0.028-0.122)
--- NOTE | 2019-08-24 11:04 | PDOC CONSULTATION ---
Consultation Consult Date: 08/24/19 Provider Consulted: VIKY SWANSON Consult reason:: Hematology/Oncology consultation was requested for patient with history of breast cancer, now with biopsy proved lung cancer. History of Present Illness Admission Date/PCP: 08/16/19 14:06 LIGIA ARCE History of Present Illness: WINIFRED STOKES is a 63 year old female who was admitted for increased dyspnea. She has a history of COPD/emphysema and has continued to smoke. On admission, CT chest showed a lung mass. This was biopsied and now shows a primary lung adenocarcinoma. Today, patient states that "someone is supposed to come up from downstairs" to talk to her about the biopsy results. She states no one has discussed this with her. However, nurses report that they had a long discussion yesterday about the fact that this is a new lung cancer. Nurses also report significant decline in her respiratory status just over the last 48 hours. She has a remote history of breast cancer. She underwent bilateral mastectomy, but she cannot remember if she had radiation. She does not believe she had chemo. Past Medical History Cardiac Medical History: Reports: Hyperlipidema, Hypertension Pulmonary Medical History: Reports: Asthma, Chronic Obstructive Pulmonary Disease (COPD) Malignancy Medical History: Reports: Breast Cancer - s/p mastectomies (L) 2003 and (R) 2007. GI Medical History: Reports: Other - chronic antral gastritis Psychiatric Medical History: Denies: Depression Past Surgical History Past Surgical History: Reports: Hysterectomy, Mastectomy - 2008 Social History Information Source: Patient Lives with: Alone Smoking Status: Current Every Day Smoker Electronic Cigarette use?: No Frequency of Alcohol Use: None Hx Recreational Drug Use: No Drugs: None Hx Prescription Drug Abuse: No Past Social History Note: 2 living sons. One next door, the other is in intermediate. [id number] - Advance Directive Resuscitation Status: Full Code Family History Parental Family History Reviewed: Yes - Mother with cirrhosis of liver and breast cancer. Father panc Ca Children Family History Reviewed: Yes - Testicular cancer age 20 Sibling(s) Family History Reviewed.: Yes - Sister brain cancer Medication/Allergy Home Medications: Albuterol Sulfate [Ventolin 0.083% Neb 2.5 mg/3 mL Ampul] 1 vial NEB Q4HP PRN 08/16/19 Ascorbic Acid [Vitamin C with Francy Hips] 500 mg PO DAILY 08/16/19 Ferrous Sulfate [Feosol 325 mg Tablet] 325 mg PO BID 08/16/19 Fluticasone/Umeclidin/Vilanter [Trelegy 100-62.5-25 Mcg Ellipta 14 Dose/Dpi] 1 puff IH DAILY 08/16/19 Furosemide [Lasix 20 mg Tablet] 20 mg PO DAILY 08/16/19 Ipratropium/Albuterol Sulfate [Combivent Respimat 4 gm Mdi] 1 puff IH Q6HP PRN 08/16/19 Megestrol Acetate [Megace Lashell 400 mg/10 ml Udcup] 400 mg PO DAILY 08/16/19 Omeprazole 40 mg PO QAM 08/16/19 Roflumilast [Daliresp] 250 mg PO DAILY 08/16/19 Simvastatin [Zocor 10 mg Tablet] 20 mg PO QHS 08/16/19 Allergies/Adverse Reactions: aspirin Allergy (Verified 09/10/15 19:20) levofloxacin [From Levaquin] Allergy (Verified 09/10/15 19:20) NSAIDS (Non-Steroidal Anti-Inflamma Allergy (Verified 09/10/15 19:20) Review of Systems Eyes: PRESENT: visual disturbances - Blurry vision Nose, Mouth, and Throat: PRESENT: sore throat Cardiovascular: ABSENT: chest pain Respiratory: PRESENT: dyspnea Gastrointestinal: PRESENT: other - Black stools Integumentary: ABSENT: rash Neurological: PRESENT: weakness Hematologic/Lymphatic: ABSENT: easy bleeding Physical Exam Vital Signs: Temp Pulse Resp BP Pulse Ox 98.1 F 107 H 17 148/90 H 95 08/24/19 08:26 08/24/19 09:17 08/24/19 09:17 08/24/19 08:26 08/24/19 09:17 Intake & Output 08/23/19 08/24/19 08/25/19 06:59 06:59 06:59 Intake Total 1600 2756 Output Total 1650 2100 Balance -50 656 Weight 42.8 kg 44.7 kg General appearance: PRESENT: no acute distress, well-developed, well-nourished Exam: 63 year old female. Head exam: PRESENT: normocephalic Eye exam: PRESENT: EOMI Mouth exam: PRESENT: moist Neck exam: ABSENT: lymphadenopathy, tenderness Respiratory exam: PRESENT: decreased breath sounds, unlabored Breast: PRESENT: Other - Bilateral mastectomy. GI/Abdominal exam: PRESENT: soft. ABSENT: tenderness Extremities exam: ABSENT: pedal edema Musculoskeletal exam: PRESENT: normal inspection Neurological exam: PRESENT: alert, awake, other - Poor memory. Skin exam: PRESENT: normal color Results Laboratory Results: 08/21/19 05:18 08/21/19 05:18 08/16/19 12:00 Troponin I < 0.012 NT-Pro-B Natriuret Pep 469 H Impressions: Chest CT 08/16/19 13:14 IMPRESSION: Solitary pulmonary mass suspicious for malignancy. Lung Biopsy CT 08/20/19 00:00 IMPRESSION: CT GUIDED BIOPSY OF THE RIGHT UPPER LOBE PULMONARY NODULE PERFORMED WITHOUT IMMEDIATE COMPLICATION. PATHOLOGY PENDING. Chest X-Ray 08/20/19 11:50 IMPRESSION: No pneumothorax [address]-guided right lung biopsy Unchanged right upper lobe mass Status: Image reviewed by me Assessment & Plan - Diagnosis (1) Adenocarcinoma of lung Qualifiers: Laterality: right Qualified Code(s): C34.91 - Malignant neoplasm of unspecified part of right bronchus or lung Is this a current diagnosis for this admission?: Yes Plan: I discussed the diagnosis at length with the patient. She understands that this is a new primary, not recurrence of the breast cancer. However, I am not sure what stage this is. PET would be helpful to assess, but this cannot be done until patient has been discharged. However, due to her poor performance status, I do not believe she is a candidate for aggressive therapy at this time. I would consider palliative radiation. However, if primary team feels she may be a candidate for surgery, then I am happy to pursue further staging work-up. If not, then Hospice may also be appropriate. (2) COPD exacerbation Plan: As per primary team. She continues to smoke, so this will remain a problem. (3) Iron deficiency anemia Qualifiers: Iron deficiency anemia type: unspecified iron deficiency Qualified Code(s): D50.9 - Iron deficiency anemia, unspecified Is this a current diagnosis for this admission?: Yes Plan: Most recent iron panel was 2018. I will repeat this today to make sure that her iron dose is appropriate. - Plan Summary Plan Summary: I spoke with one of the patient's son's by phone, but was not able to reach Raul. I also discussed her care with Dr. Arce. All are in agreement to complete work-up as outpatient.
[2019-08-24 11:15] LABS: IRON(TIBC) 203.3 ug/dL (37-170)
[2019-08-24 12:19] LABS: FOLATE 8.57 ng/mL (>2.76)
--- NOTE | 2019-08-24 15:18 | PDOC PROGRESS REPORT ---
Subjective Progress Note for:: 08/24/19 Subjective:: No chest pain. Remain on supplemental oxygen via nasal cannula and use of BiPAP while sleeping. No fever or chills. No nausea or vomiting. No abdominal pain. She was seen in consultation by Dr. Barboza, medical oncologist, with recommendation of palliative radiation therapy while on admission. Reason For Visit: ACUTE RESPIRATORY FAILURE WITH HYPERCAPNIA Physical Exam Vital Signs: Temp Pulse Resp BP Pulse Ox 97.9 F 94 14 145/90 H 100 08/24/19 03:13 08/24/19 03:13 08/24/19 04:09 08/24/19 03:13 08/24/19 03:13 Intake & Output 08/23/19 08/24/19 08/25/19 06:59 06:59 06:59 Intake Total 1600 2756 Output Total 1650 2100 Balance -50 656 Weight 42.8 kg 44.7 kg Physical Exam: General appearance: PRESENT: mild distress, thin Head exam: PRESENT: atraumatic, normocephalic Eye exam: PRESENT: conjunctiva pink. ABSENT: pallor, scleral icterus Mouth exam: PRESENT: moist Respiratory exam: PRESENT: decreased breath sounds, minimal rhonchi Cardiovascular exam: PRESENT: RRR, +S1, +S2. ABSENT: diastolic murmur, rubs, systolic murmur GI/Abdominal exam: PRESENT: normal bowel sounds, soft. ABSENT: distended, g uarding, mass, organomegaly, rebound, tenderness Extremities exam: ABSENT: pedal edema Neurological exam: PRESENT: alert, awake, oriented to person, oriented to place, oriented to time, oriented to situation, CN II-XII grossly intact. ABSENT: motor sensory deficit Psychiatric exam: PRESENT: agitated - less, anxious - less Skin exam: PRESENT: dry, warm Results Laboratory Results: 08/21/19 05:18 08/21/19 05:18 08/16/19 12:00 Troponin I < 0.012 NT-Pro-B Natriuret Pep 469 H Impressions: Chest CT 08/16/19 13:14 IMPRESSION: Solitary pulmonary mass suspicious for malignancy. Lung Biopsy CT 08/20/19 00:00 IMPRESSION: CT GUIDED BIOPSY OF THE RIGHT UPPER LOBE PULMONARY NODULE PERFORMED WITHOUT IMMEDIATE COMPLICATION. PATHOLOGY PENDING. Chest X-Ray 08/20/19 11:50 IMPRESSION: No pneumothorax [address]-guided right lung biopsy Unchanged right upper lobe mass Assessment & Plan - Diagnosis (1) Acute hypercapnic respiratory failure Is this a current diagnosis for this admission?: Yes (2) COPD with exacerbation Is this a current diagnosis for this admission?: Yes (3) Adenocarcinoma of lung Qualifiers: Laterality: right Qualified Code(s): C34.91 - Malignant neoplasm of unspecified part of right bronchus or lung Is this a current diagnosis for this admission?: Yes (4) HTN (hypertension) Qualifiers: Hypertension type: essential hypertension Qualified Code(s): I10 - Essential (primary) hypertension Is this a current diagnosis for this admission?: Yes (5) HLD (hyperlipidemia) Qualifiers: Hyperlipidemia type: unspecified Qualified Code(s): E78.5 - Hyperlipidemia, unspecified Is this a current diagnosis for this admission?: Yes (6) Chronic antral gastritis Is this a current diagnosis for this admission?: Yes (7) Adult failure to thrive syndrome Is this a current diagnosis for this admission?: Yes (8) Iron deficiency anemia Qualifiers: Iron deficiency anemia type: unspecified iron deficiency Qualified Code(s): D50.9 - Iron deficiency anemia, unspecified Is this a current diagnosis for this admission?: Yes - Time Time Spent with patient: 25-34 minutes Level of Care: IMCU Medications reviewed and adjusted accordingly: Yes Anticipated discharge: Home with Homehealth Within: Other - Inpatient Certification Based on my medical assessment, after consideration of the patient's comorbidities, presenting symptoms, or acuity I expect that the services needed warrant INPATIENT care.: Yes I certify that my determination is in accordance with my understanding of Medicare's requirements for reasonable and necessary INPATIENT services [42 CFR 412.3e].: Yes Medical Necessity: Significant Comorbidiites Make Outpatient Treatment Too Risky, Need Close Monitoring Due to Risk of Patient Decompensation, Need For IV Fluids, Need For Continuous Telemetry Monitoring, Need for Nebulizer Therapy and Monitoring of Response, Risk of Complication if Not Cared For in Hospital, Risk of Diagnosis Which Will Require Inpatient Eval/Care/Monitoring Post Hospital Care: D/C [employer] Documentation - Plan Summary Plan Summary: Continue current medication management with decrease of IV Solu Medrol to 20 mg q8 hours. Follow up on medical oncology recommendations. 3:17 pm I discussed case with Dr. Barboza, medical oncologist, further evaluation and management will be completed upon discharge.
[2019-08-24] MEDS: IPRATROPIUM/ALBUTEROL 0.5-2.5 MG/3 ML AMPUL NEB PRN (19:52)
[2019-08-24] MEDS: SIMVASTATIN 10 MG TABLET PO SCH (22:43)
[2019-08-24] MEDS: NORMAL SALINE 1000 ML 1,000 ML IV PRN (22:47)
[2019-08-25] MEDS: METHYLPREDNISOLONE INJ 40 MG/1 ML SDV IV SCH ×3 (05:36→21:43)
[2019-08-25] MEDS: PANTOPRAZOLE SODIUM 40 MG TABLET.DR PO SCH (05:36)
[2019-08-25] MEDS: ACETAMINOPHEN 325 MG TABLET PO PRN ×2 (05:36→21:46)
[2019-08-25] MEDS: FERROUS SULFATE 325 MG TABLET PO SCH ×2 (09:55→17:12)
[2019-08-25] MEDS: ASCORBIC ACID 500 MG TABLET PO SCH (09:56)
[2019-08-25] MEDS: ENOXAPARIN SODIUM INJ 30 MG/0.3 ML DISP.SYRIN SUBCUT SCH (09:56)
--- NOTE | 2019-08-25 10:51 | PDOC PROGRESS REPORT ---
Subjective Progress Note for:: 08/25/19 Subjective:: Patient is currently doing well Patient is denied any chest pain or short of breath Patient is currently oxygen dependent Patient was diagnosed with the lung cancer currently seen by the oncology and suggested outpatient PET scan and further evaluate Reason For Visit: ACUTE RESPIRATORY FAILURE WITH HYPERCAPNIA Physical Exam Vital Signs: Temp Pulse Resp BP Pulse Ox 97.6 F 93 16 151/97 H 98 08/25/19 08:00 08/25/19 08:00 08/25/19 08:00 08/25/19 08:00 08/25/19 08:00 Intake & Output 08/24/19 08/25/19 08/26/19 06:59 06:59 06:59 Intake Total 2756 2670 Output Total 6139 2925 Balance 656 -255 Weight 44.7 kg 44.8 kg General appearance: PRESENT: no acute distress, well-developed, well-nourished Head exam: PRESENT: atraumatic, normocephalic Eye exam: PRESENT: conjunctiva pink, EOMI, PERRLA. ABSENT: scleral icterus Ear exam: PRESENT: normal external ear exam Mouth exam: PRESENT: moist, tongue midline Neck exam: PRESENT: full ROM. ABSENT: carotid bruit, JVD, lymphadenopathy, thyromegaly Respiratory exam: PRESENT: clear to auscultation saqib Cardiovascular exam: PRESENT: RRR. ABSENT: diastolic murmur, rubs, systolic murmur Pulses: PRESENT: normal dorsalis pedis pul, +2 pedal pulses bilateral Vascular exam: PRESENT: normal capillary refill GI/Abdominal exam: PRESENT: normal bowel sounds, soft. ABSENT: distended, guarding, mass, organolmegaly, rebound, tenderness Rectal exam: PRESENT: deferred Neurological exam: PRESENT: alert, awake, oriented to person, oriented to place, oriented to time, oriented to situation, CN II-XII grossly intact. ABSENT: motor sensory deficit Psychiatric exam: PRESENT: appropriate affect, normal mood. ABSENT: homicidal ideation, suicidal ideation Skin exam: PRESENT: dry, intact, warm. ABSENT: cyanosis, rash Results Laboratory Results: 08/21/19 05:18 08/21/19 05:18 08/24/19 08/24/19 10:35 10:35 Iron 203.3 H TIBC 399 % Saturation 51 Transferrin 319.39 Ferritin 32.90 Vitamin B12 313.0 Folate 8.57 08/16/19 12:00 Troponin I < 0.012 NT-Pro-B Natriuret Pep 469 H Impressions: Chest CT 08/16/19 13:14 IMPRESSION: Solitary pulmonary mass suspicious for malignancy. Lung Biopsy CT 08/20/19 00:00 IMPRESSION: CT GUIDED BIOPSY OF THE RIGHT UPPER LOBE PULMONARY NODULE PERFORMED WITHOUT IMMEDIATE COMPLICATION. PATHOLOGY PENDING. Chest X-Ray 08/20/19 11:50 IMPRESSION: No pneumothorax [address]-guided right lung biopsy Unchanged right upper lobe mass Assessment & Plan - Diagnosis (1) Acute hypercapnic respiratory failure Is this a current diagnosis for this admission?: Yes (2) Adenocarcinoma of lung Qualifiers: Laterality: right Qualified Code(s): C34.91 - Malignant neoplasm of unspecified part of right bronchus or lung Is this a current diagnosis for this admission?: Yes (3) Adult failure to thrive syndrome Is this a current diagnosis for this admission?: Yes (4) HLD (hyperlipidemia) Qualifiers: Hyperlipidemia type: unspecified Qualified Code(s): E78.5 - Hyperlipidemia, unspecified Is this a current diagnosis for this admission?: Yes (5) HTN (hypertension) Qualifiers: Hypertension type: essential hypertension Qualified Code(s): I10 - Essential (primary) hypertension Is this a current diagnosis for this admission?: Yes (6) Iron deficiency anemia Qualifiers: Iron deficiency anemia type: unspecified iron deficiency Qualified Code(s): D50.9 - Iron deficiency anemia, unspecified Is this a current diagnosis for this admission?: Yes - Time Time Spent with patient: 15-24 minutes Level of Care: IMCU Medications reviewed and adjusted accordingly: Yes Anticipated discharge: Other Within: Other - Plan Summary Plan Summary: Continues to current medications
[2019-08-25] MEDS: NORMAL SALINE 1000 ML 1,000 ML IV PRN (17:14)
[2019-08-25] MEDS: SIMVASTATIN 10 MG TABLET PO SCH (21:43)
[2019-08-26] MEDS: PANTOPRAZOLE SODIUM 40 MG TABLET.DR PO SCH (06:13)
[2019-08-26] MEDS: METHYLPREDNISOLONE INJ 40 MG/1 ML SDV IV SCH ×3 (06:13→21:50)
[2019-08-26] MEDS: ASCORBIC ACID 500 MG TABLET PO SCH (09:51)
[2019-08-26] MEDS: ENOXAPARIN SODIUM INJ 30 MG/0.3 ML DISP.SYRIN SUBCUT SCH (09:51)
[2019-08-26] MEDS: FERROUS SULFATE 325 MG TABLET PO SCH ×2 (09:51→17:24)
--- NOTE | 2019-08-26 10:19 | PDOC PROGRESS REPORT ---
Subjective Progress Note for:: 08/26/19 Subjective:: Patient is currently doing well Patient is denied any chest pain or short of breath Patient is currently oxygen dependent Patient was diagnosed with the lung cancer currently seen by the oncology and suggested outpatient PET scan and further evaluate Reason For Visit: ACUTE RESPIRATORY FAILURE WITH HYPERCAPNIA Physical Exam Vital Signs: Temp Pulse Resp BP Pulse Ox 97.9 F 100 16 148/96 H 100 08/26/19 08:03 08/26/19 08:03 08/26/19 08:03 08/26/19 08:03 08/26/19 08:03 Intake & Output 08/25/19 08/26/19 08/27/19 06:59 06:59 06:59 Intake Total 2670 1603 Output Total 2925 2200 Balance -255 -597 Weight 44.8 kg 45.2 kg General appearance: PRESENT: no acute distress, well-developed, well-nourished Head exam: PRESENT: atraumatic, normocephalic Eye exam: PRESENT: conjunctiva pink, EOMI, PERRLA. ABSENT: scleral icterus Ear exam: PRESENT: normal external ear exam Mouth exam: PRESENT: moist, tongue midline Neck exam: PRESENT: full ROM. ABSENT: carotid bruit, JVD, lymphadenopathy, thyromegaly Respiratory exam: PRESENT: clear to auscultation saqib Cardiovascular exam: PRESENT: RRR. ABSENT: diastolic murmur, rubs, systolic murmur Pulses: PRESENT: normal dorsalis pedis pul, +2 pedal pulses bilateral Vascular exam: PRESENT: normal capillary refill GI/Abdominal exam: PRESENT: normal bowel sounds, soft. ABSENT: distended, guarding, mass, organolmegaly, rebound, tenderness Rectal exam: PRESENT: deferred Neurological exam: PRESENT: alert, awake, oriented to person, oriented to place, oriented to time, oriented to situation, CN II-XII grossly intact. ABSENT: motor sensory deficit Psychiatric exam: PRESENT: appropriate affect, normal mood. ABSENT: homicidal ideation, suicidal ideation Skin exam: PRESENT: dry, intact, warm. ABSENT: cyanosis, rash Results Laboratory Results: 08/21/19 05:18 08/21/19 05:18 08/16/19 12:00 Troponin I < 0.012 NT-Pro-B Natriuret Pep 469 H Impressions: Chest CT 08/16/19 13:14 IMPRESSION: Solitary pulmonary mass suspicious for malignancy. Lung Biopsy CT 08/20/19 00:00 IMPRESSION: CT GUIDED BIOPSY OF THE RIGHT UPPER LOBE PULMONARY NODULE PERFORMED WITHOUT IMMEDIATE COMPLICATION. PATHOLOGY PENDING. Chest X-Ray 08/20/19 11:50 IMPRESSION: No pneumothorax [address]-guided right lung biopsy Unchanged right upper lobe mass Assessment & Plan - Diagnosis (1) Acute hypercapnic respiratory failure Is this a current diagnosis for this admission?: Yes (2) Adenocarcinoma of lung Qualifiers: Laterality: right Qualified Code(s): C34.91 - Malignant neoplasm of unspecified part of right bronchus or lung Is this a current diagnosis for this admission?: Yes (3) Adult failure to thrive syndrome Is this a current diagnosis for this admission?: Yes (4) HLD (hyperlipidemia) Qualifiers: Hyperlipidemia type: unspecified Qualified Code(s): E78.5 - Hyperlipidemia, unspecified Is this a current diagnosis for this admission?: Yes (5) HTN (hypertension) Qualifiers: Hypertension type: essential hypertension Qualified Code(s): I10 - Essential (primary) hypertension Is this a current diagnosis for this admission?: Yes (6) Iron deficiency anemia Qualifiers: Iron deficiency anemia type: unspecified iron deficiency Qualified Code(s): D50.9 - Iron deficiency anemia, unspecified Is this a current diagnosis for this admission?: Yes - Time Time Spent with patient: 15-24 minutes Level of Care: IMCU Medications reviewed and adjusted accordingly: Yes Anticipated discharge: Other Within: Other - Plan Summary Plan Summary: Continues to current medications
[2019-08-26] MEDS: NORMAL SALINE 1000 ML 1,000 ML IV PRN (12:18)
[2019-08-26] MEDS: SIMVASTATIN 10 MG TABLET PO SCH (21:50)
[2019-08-26] MEDS: ACETAMINOPHEN 325 MG TABLET PO PRN (22:05)
[2019-08-27] MEDS: METHYLPREDNISOLONE INJ 40 MG/1 ML SDV IV SCH (05:41)
[2019-08-27] MEDS: PANTOPRAZOLE SODIUM 40 MG TABLET.DR PO SCH (05:41)
[2019-08-27] MEDS: FERROUS SULFATE 325 MG TABLET PO SCH ×2 (10:40→18:14)
[2019-08-27] MEDS: ASCORBIC ACID 500 MG TABLET PO SCH (10:40)
[2019-08-27] MEDS: ENOXAPARIN SODIUM INJ 30 MG/0.3 ML DISP.SYRIN SUBCUT SCH (10:40)
[2019-08-27] MEDS: PREDNISONE 20 MG TABLET PO SCH (10:40)
--- NOTE | 2019-08-27 16:27 | PDOC PROGRESS REPORT ---
Subjective Progress Note for:: 08/27/19 Subjective:: She reported improvement in her breathing. Remain on supplemental oxygen via nasal cannula and use of BiPAP while sleeping. No chest pain. No fever or chills. No nausea or vomiting. No abdominal pain. Reason For Visit: ACUTE RESPIRATORY FAILURE WITH HYPERCAPNIA Physical Exam Vital Signs: Temp Pulse Resp BP Pulse Ox 97.9 F 93 18 125/85 98 08/26/19 23:23 08/27/19 02:00 08/27/19 00:20 08/26/19 23:23 08/27/19 04:29 Intake & Output 08/26/19 08/27/19 08/28/19 06:59 06:59 06:59 Intake Total 1603 2025 Output Total 2200 950 Balance -597 1075 Weight 45.2 kg 44.9 kg Physical Exam: General appearance: PRESENT: mild distress, thin Head exam: PRESENT: atraumatic, normocephalic Eye exam: PRESENT: conjunctiva pink. ABSENT: pallor, scleral icterus Mouth exam: PRESENT: moist Respiratory exam: PRESENT: decreased breath sounds at lung bases, minimal scattered rhonchi Cardiovascular exam: PRESENT: RRR, +S1, +S2. ABSENT: diastolic murmur, rubs, systolic murmur GI/Abdominal exam: PRESENT: normal bowel sounds, soft. ABSENT: distended, guarding, mass, organomegaly, rebound, tenderness Extremities exam: ABSENT: pedal edema Neurological exam: PRESENT: alert, awake, oriented to person, oriented to place, oriented to time, oriented to situation, CN II-XII grossly intact. ABSENT: motor sensory deficit Psychiatric exam: PRESENT: agitated - less, anxious - less Skin exam: PRESENT: dry, warm Results Laboratory Results: 08/21/19 05:18 08/21/19 05:18 08/16/19 12:00 Troponin I < 0.012 NT-Pro-B Natriuret Pep 469 H Impressions: Chest CT 08/16/19 13:14 IMPRESSION: Solitary pulmonary mass suspicious for malignancy. Lung Biopsy CT 08/20/19 00:00 IMPRESSION: CT GUIDED BIOPSY OF THE RIGHT UPPER LOBE PULMONARY NODULE PERFORMED WITHOUT IMMEDIATE COMPLICATION. PATHOLOGY PENDING. Chest X-Ray 08/20/19 11:50 IMPRESSION: No pneumothorax [address]-guided right lung biopsy Unchanged right upper lobe mass Assessment & Plan - Diagnosis (1) Acute hypercapnic respiratory failure Is this a current diagnosis for this admission?: Yes (2) COPD with exacerbation Is this a current diagnosis for this admission?: Yes (3) Adenocarcinoma of lung Qualifiers: Laterality: right Qualified Code(s): C34.91 - Malignant neoplasm of unspecified part of right bronchus or lung Is this a current diagnosis for this admission?: Yes (4) HTN (hypertension) Qualifiers: Hypertension type: essential hypertension Qualified Code(s): I10 - Essential (primary) hypertension Is this a current diagnosis for this admission?: Yes (5) HLD (hyperlipidemia) Qualifiers: Hyperlipidemia type: unspecified Qualified Code(s): E78.5 - Hyperlipidemia, unspecified Is this a current diagnosis for this admission?: Yes (6) Chronic antral gastritis Is this a current diagnosis for this admission?: Yes (7) Adult failure to thrive syndrome Is this a current diagnosis for this admission?: Yes (8) Iron deficiency anemia Qualifiers: Iron deficiency anemia type: unspecified iron deficiency Qualified Code(s): D50.9 - Iron deficiency anemia, unspecified Is this a current diagnosis for this admission?: Yes - Time Time Spent with patient: 25-34 minutes Level of Care: IMCU Medications reviewed and adjusted accordingly: Yes Anticipated discharge: Home with Homehealth Within: Other - Inpatient Certification Based on my medical assessment, after consideration of the patient's comorbidities, presenting symptoms, or acuity I expect that the services needed warrant INPATIENT care.: Yes I certify that my determination is in accordance with my understanding of Medicare's requirements for reasonable and necessary INPATIENT services [42 CFR 412.3e].: Yes Medical Necessity: Significant Comorbidiites Make Outpatient Treatment Too Risky, Need Close Monitoring Due to Risk of Patient Decompensation, Need For Continuous Telemetry Monitoring, Risk of Complication if Not Cared For in Hospital, Risk of Diagnosis Which Will Require Inpatient Eval/Care/Monitoring Post Hospital Care: D/C or Transfer Summary - Plan Summary Plan Summary: D/C IV Solu Medrol. Start on Prednisone 20 mg p.o daily with tapering dose regimen. Possible d/c tomorrow was discussed with patient and son and they are in agreement.
[2019-08-27] MEDS: SIMVASTATIN 10 MG TABLET PO SCH (21:11)
[2019-08-28] MEDS: ACETAMINOPHEN 325 MG TABLET PO PRN (00:10)
[2019-08-28] MEDS: PANTOPRAZOLE SODIUM 40 MG TABLET.DR PO SCH (05:13)
--- NOTE | 2019-08-28 08:35 | PDOC DISCHARGE SUMMARY ---
Impression - Admit/DC Date/PCP Admission Date/Primary Care Provider: 08/16/19 14:06 LIGIA ARCE Discharge Date: 08/28/19 - Discharge Diagnosis (1) Acute hypercapnic respiratory failure Is this a current diagnosis for this admission?: Yes (2) COPD with exacerbation Is this a current diagnosis for this admission?: Yes (3) Adenocarcinoma of lung Is this a current diagnosis for this admission?: Yes (4) HTN (hypertension) Is this a current diagnosis for this admission?: Yes (5) HLD (hyperlipidemia) Is this a current diagnosis for this admission?: Yes (6) Chronic antral gastritis Is this a current diagnosis for this admission?: Yes (7) Adult failure to thrive syndrome Is this a current diagnosis for this admission?: Yes (8) Iron deficiency anemia Is this a current diagnosis for this admission?: Yes - Assessment Summary: She was admitted for exacerbated COPD with hypercapnia. She was managed with GDMT with improvement in her breathing. Patient required BiPAP support and there is documented desaturation with efforts that justify discharge home with supplemental oxygen at 2L/minute via nasal cannula. Her chest x ray suggested right upper lobe mass which was further evaluated with CT scan of chest and eventual CT guided percutaneous biopsy. Pathology was reported as primary adenocarcinoma of the lung. She was seen in consultation by Dr. Barboza, medical oncologist, and arrangement has been made for outpatient follow up for further evaluation and management. She will be discharge home to day on tapering dose Prednisone therapy and remain on all other preadmission medication management. - Additional Information Resuscitation Status: Full Code Discharge Diet: As Tolerated Discharge Activity: Activity As Tolerated Referrals: VIKY BARBOZA MD [ACTIVE STAFF] - (in 2 weeks/ Please call office to arrange unless patient and family have requested Hospice. ) LIGIA ARCE MD [Primary Care Provider] - 09/03/19 10:00 am Prescriptions: Prednisone [Deltasone 5 mg Tablet] 5 mg PO ASDIR PRN #20 tablet PRN Reason: Home Medications: Albuterol Sulfate [Ventolin 0.083% Neb 2.5 mg/3 mL Ampul] 1 vial NEB Q4HP PRN 08/16/19 Ascorbic Acid [Vitamin C with Francy Hips] 500 mg PO DAILY 08/16/19 Ferrous Sulfate [Feosol 325 mg Tablet] 325 mg PO BID 08/16/19 Fluticasone/Umeclidin/Vilanter [Trelegy 100-62.5-25 Mcg Ellipta 14 Dose/Dpi] 1 puff IH DAILY 08/16/19 Furosemide [Lasix 20 mg Tablet] 20 mg PO DAILY 08/16/19 Ipratropium/Albuterol Sulfate [Combivent Respimat 4 gm Mdi] 1 puff IH Q6HP PRN 08/16/19 Megestrol Acetate [Megace Lashell 400 mg/10 ml Udcup] 400 mg PO DAILY 08/16/19 Omeprazole 40 mg PO QAM 08/16/19 Roflumilast [Daliresp] 250 mg PO DAILY 08/16/19 Simvastatin [Zocor 10 mg Tablet] 20 mg PO QHS 08/16/19 Prednisone [Deltasone 5 mg Tablet] 5 mg PO ASDIR PRN #20 tablet 08/28/19 History of Present Illiness History of Present Illness: WINIFRED STOKES is a 63 year old female patient known to my practice with history of Asthma COPD, heart disease, hypertension, hyperlipidemia, chronic antral gastritis, and s/p bilateral mastectomies who presented to the ED with progressively worsening difficulty with breathing over last 2-3 weeks. Patient reported compliance with her medication at home, admitted to associated coughing with minimal sputum production. She denied any associated chest pain but reported that her heart felt like jointing out of her chest. No fever or chills. She denied any nausea, vomiting or abdominal pain. She denied ongoing cigarette smoking. No denied any running nose, nasal or sinus congestion, headache or dizziness. She denies any recent travel outside the area or exposure to known or suspected person with COVID-19 virus infection. Her initial evaluation in the ED was significant for labored breathing, tachycardia, tachypnea, abnormal chest X ray and chest CT scan revealing mild emphysema and right upper lobe mass, and her ABG suggestive of hypercapnia. Her morbidities are as listed below. She was advised hospitalization for further evaluation and management. Hospital Course Hospital Course: She was admitted for exacerbated COPD with hypercapnia. She was managed with GDMT with improvement in her breathing. Patient required BiPAP support and there is documented desaturation with efforts that justify discharge home with supplemental oxygen at 2L/minute via nasal cannula. Her chest x ray suggested right upper lobe mass which was further evaluated with CT scan of chest and eventual CT guided percutaneous biopsy. Pathology was reported as primary adenocarcinoma of the lung. She was seen in consultation by Dr. Barboza, medical oncologist, and arrangement has been made for outpatient follow up for further evaluation and management. She will be discharge home to day on tapering dose Prednisone therapy and remain on all other preadmission medication management. Physical Exam Vital Signs: Temp Pulse Resp BP Pulse Ox 97.9 F 94 19 131/87 H 100 08/28/19 03:18 08/28/19 03:18 08/28/19 03:18 08/28/19 03:18 08/28/19 03:18 Intake & Output 08/27/19 08/28/19 08/29/19 06:59 06:59 06:59 Intake Total 2024 1525 Output Total 950 3550 Balance 1075 -2024 Weight 44.9 kg 44.9 kg General appearance: PRESENT: mild distress, thin Head exam: PRESENT: atraumatic, normocephalic Eye exam: PRESENT: conjunctiva pink. ABSENT: pallor, scleral icterus Mouth exam: PRESENT: moist Respiratory exam: PRESENT: decreased breath sounds at lung bases Cardiovascular exam: PRESENT: RRR, +S1, +S2. ABSENT: diastolic murmur, rubs, systolic murmur GI/Abdominal exam: PRESENT: normal bowel sounds, soft. ABSENT: distended, guarding, mass, organomegaly, rebound, tenderness Extremities exam: ABSENT: pedal edema Neurological exam: PRESENT: alert, awake, oriented to person, oriented to place, oriented to time, oriented to situation, CN II-XII grossly intact. ABSENT: motor sensory deficit Psychiatric exam: PRESENT: agitated - less, anxious - less Skin exam: PRESENT: dry, warm Results Laboratory Results: WBC 10.0 10^3/uL (4.0-10.5) 08/21/19 05:18 RBC 4.19 10^6/uL (3.72-5.28) 08/21/19 05:18 Hgb 11.8 g/dL (12.0-15.5) L 08/21/19 05:18 Hct 36.5 % (36.0-47.0) 08/21/19 05:18 MCV 87 fl (80-97) 08/21/19 05:18 MCH 28.1 pg (27.0-33.4) 08/21/19 05:18 MCHC 32.2 g/dL (32.0-36.0) 08/21/19 05:18 RDW 15.9 % (11.5-14.0) H 08/21/19 05:18 Plt Count 300 10^3/uL (150-450) 08/21/19 05:18 Lymph % (Auto) Not Reportable 08/21/19 05:18 [place] % (Auto) Not Reportable 08/21/19 05:18 Eos % (Auto) Not Reportable 08/21/19 05:18 Baso % (Auto) Not Reportable 08/21/19 05:18 Reticulocyte # 0.086 10^6/uL (0.028-0.122) 08/24/19 10:35 Absolute Neuts (auto) Not Reportable 08/21/19 05:18 Absolute Lymphs (auto) Not Reportable 08/21/19 05:18 Absolute Monos (auto) Not Reportable 08/21/19 05:18 Absolute Eos (auto) Not Reportable 08/21/19 05:18 Absolute Basos (auto) Not Reportable 08/21/19 05:18 Total Counted 100 08/21/19 05:18 Seg Neutrophils % Not Reportable 08/21/19 05:18 Seg Neuts % (Manual) 94 % (42-78) H 08/21/19 05:18 Lymphocytes % (Manual) 4 % (13-45) L 08/21/19 05:18 Monocytes % (Manual) 2 % (3-13) L 08/21/19 05:18 Eosinophils % (Manual) 0 % (0-6) 08/21/19 05:18 Basophils % (Manual) 0 % (0-2) 08/21/19 05:18 Abs Neuts (Manual) 9.4 10^3/uL (1.7-8.2) H 08/21/19 05:18 Abs Lymphs (Manual) 0.4 10^3/uL (0.5-4.7) L 08/21/19 05:18 Abs Monocytes (Manual) 0.2 10^3/uL (0.1-1.4) 08/21/19 05:18 Absolute Eos (Manual) 0.0 10^3/uL (0.0-0.6) 08/21/19 05:18 Abs Basophils (Manual) 0.0 10^3/uL (0.0-0.2) 08/21/19 05:18 Platelet Comment ADEQUATE 08/21/19 05:18 Anisocytosis SLIGHT 08/21/19 05:18 Target Cells SLIGHT 08/21/19 05:18 Tear Drop Cells SLIGHT 08/21/19 05:18 Ovalocytes SLIGHT 08/21/19 05:18 Retic Count (auto) 1.90 % (0.66-2.85) 08/24/19 10:35 PT 13.3 SEC (11.4-15.4) 08/19/19 19:15 INR 1.01 08/19/19 19:15 APTT 28.3 SEC (23.5-35.8) 08/19/19 19:15 Carbonic Acid 1.95 mmol/L (1.05-1.35) H 08/16/19 12:22 HCO3/H2CO3 Ratio 16:1 08/16/19 12:22 ABG pH 7.32 (7.35-7.45) L 08/16/19 12:22 ABG pCO2 64.9 mmHg (35-45) H 08/16/19 12:22 ABG pO2 154.6 mmHg (80-100) H 08/16/19 12:22 ABG HCO3 32.4 mmol/L (20-24) H 08/16/19 12:22 ABG Total CO2 34.4 mmol/L (21-25) H 08/16/19 12:22 ABG O2 Saturation 98.8 % (94-98) H 08/16/19 12:22 ABG Base Excess 4.4 mmol/L 08/16/19 12:22 FiO2 2L 08/16/19 12:22 Sodium 139.9 mmol/L (137-145) 08/21/19 05:18 Potassium 4.2 mmol/L (3.6-5.0) 08/21/19 05:18 Chloride 99 mmol/L (98-107) 08/21/19 05:18 Carbon Dioxide 40 mmol/L (22-30) H* 08/21/19 05:18 Anion Gap 1 (5-19) L 08/21/19 05:18 BUN 27 mg/dL (7-20) H 08/21/19 05:18 Creatinine 0.71 mg/dL (0.52-1.25) 08/21/19 05:18 Est GFR ( Amer) > 60 (>60) 08/21/19 05:18 Est GFR (MDRD) Non-Af > 60 (>60) 08/21/19 05:18 Glucose 135 mg/dL (75-110) H 08/21/19 05:18 Calcium 9.1 mg/dL (8.4-10.2) 08/21/19 05:18 Iron 203.3 ug/dL (37-170) H 08/24/19 10:35 TIBC 399 ug/dL (250-450) 08/24/19 10:35 % Saturation 51 % 08/24/19 10:35 Transferrin 319.39 mg/dL (206.00-381.00) 08/24/19 10:35 Ferritin 32.90 ng/mL (11.1-264.0) 08/24/19 10:35 Total Bilirubin 0.4 mg/dL (0.2-1.3) 08/21/19 05:18 Direct Bilirubin 0.0 mg/dL (0.0-0.4) 08/21/19 05:18 Neonat Total Bilirubin Not Reportable 08/21/19 05:18 Neonat Direct Bilirubin Not Reportable 08/21/19 05:18 Neonat Indirect Bili Not Reportable 08/21/19 05:18 AST 15 U/L (14-36) 08/21/19 05:18 ALT 15 U/L (<35) 08/21/19 05:18 Alkaline Phosphatase 74 U/L (38-126) 08/21/19 05:18 Troponin I < 0.012 ng/mL 08/16/19 12:00 NT-Pro-B Natriuret Pep 469 pg/mL (<125) H 08/16/19 12:00 Total Protein 5.7 g/dL (6.3-8.2) L 08/21/19 05:18 Albumin 3.1 g/dL (3.5-5.0) L 08/21/19 05:18 Vitamin B12 313.0 pg/mL (239-931) 08/24/19 10:35 Folate 8.57 ng/mL (>2.76) 08/24/19 10:35 08/16/19 12:00 Troponin I < 0.012 NT-Pro-B Natriuret Pep 469 H Impressions: Chest X-Ray 08/16/19 11:46 IMPRESSION: 38.7 mm suprahilar mass on the right. Chest CT 08/16/19 13:14 IMPRESSION: Solitary pulmonary mass suspicious for malignancy. Chest X-Ray 08/20/19 00:00 IMPRESSION: No pneumothorax post right upper lobe biopsy. Post biopsy hemorrhage within the right upper lung. Lung Biopsy CT 08/20/19 00:00 IMPRESSION: CT GUIDED BIOPSY OF THE RIGHT UPPER LOBE PULMONARY NODULE PERFORMED WITHOUT IMMEDIATE COMPLICATION. PATHOLOGY PENDING. Chest X-Ray 08/20/19 11:50 IMPRESSION: No pneumothorax [address]-guided right lung biopsy Unchanged right upper lobe mass Plan Health Concerns: Newly diagnosed primary adenocarcinoma of the lung. Compliance with medication management and schedule follow up. Plan of Treatment: Close follow up with medical oncologist and myself. Supplemental oxygen at home and medication management. Goals: Reduce readmission risk due to her newly diagnosed lung cancer and possible COPD exacerbation. Time Spent: Greater than 30 Minutes Stroke Is this a Stroke Patient?: No Acute Heart Failure - Is this a Heart Failure Patient?: No
[2019-08-28] MEDS: ASCORBIC ACID 500 MG TABLET PO SCH (10:17)
[2019-08-28] MEDS: PREDNISONE 20 MG TABLET PO SCH (10:17)
[2019-08-28] MEDS: FERROUS SULFATE 325 MG TABLET PO SCH ×2 (10:17→17:07)
[2019-08-28] MEDS: ENOXAPARIN SODIUM INJ 30 MG/0.3 ML DISP.SYRIN SUBCUT SCH (10:17)
[2019-08-28 17:13] VITALS: BP 127/87
== END 2019-08-28 18:44 | disposition home health service (06) | DRG 189 ==
LOC: ER 11:30 → EH 14:06 → 3W 16:00
PROVIDERS: ADMIT Internal Medicine Geriatric Medicine; ATTEND Internal Medicine Geriatric Medicine
PROC: 0BBC3ZX Excision of Right Upper Lung Lobe, Percutaneous Approach, Diagnostic (ICD-10-PCS; principal; 2019-08-16)
DX: J96.02 Acute respiratory failure with hypercapnia (principal); C34.11 Malignant neoplasm of upper lobe, right bronchus or lung; J44.1 Chronic obstructive pulmonary disease with (acute) exacerbation; Z68.1 Body mass index [BMI] 19.9 or less, adult; I10 Essential (primary) hypertension; E78.5 Hyperlipidemia, unspecified; K29.50 Unspecified chronic gastritis without bleeding; D50.9 Iron deficiency anemia, unspecified; R62.7 Adult failure to thrive; Z79.51 Long term (current) use of inhaled steroids; Z79.899 Other long term (current) drug therapy; Z90.13 Acquired absence of bilateral breasts and nipples; Z85.3 Personal history of malignant neoplasm of breast; Z87.891 Personal history of nicotine dependence
CPT/HCPCS: 32405; 36415; 71045; 71260; 80053; 82607; 82728; 82746; 82803; 83540; 83550; 83880; 84466; 84484; 85025; 85045; 85610; 85730; 87040; 87077; 87150; 88305; 88341; 88342; 93005; 93010; 94640; 94660; 96365; 96366; 96375; 99285; J1650; J2250; J2920; J2930; J3010; J3475; J3490; J7030; J7512; J7620

== ENCOUNTER → 2019-09-18 | Outpatient (CLI) | payer MEDICARE ==
--- NOTE | 2019-09-19 10:47 | RADIOLOGY REPORT (SQ) ---
EXAM DESCRIPTION: PET CT SKULL/THIGH IMAGES COMPLETED DATE/TIME: 09/18/2019 5:38 pm REASON FOR STUDY: LUNG CA (C34.11) AND HX OF BREAST CA C34.11 MALIGNANT NEOPLASM OF UPPER LOBE, RIG HT BRONCHUS OR L COMPARISON: No prior pets. 08/20/2019, 08/16/2019 CT RADIONUCLIDE AND DOSE: 9.75 mCi F18 FDG The route of agent administration: Intravenous FASTING BLOOD SUGAR: 97 mg/dl CONTRAST TYPE AND DOSE: No CT contrast given. TECHNIQUE: Blood glucose level was verified. Above dose of FDG was injected intravenously. 2-D seg mented attenuation correction images were obtained from the base of the skull to the midthighs. Nonc ontrast CT images were obtained for attenuation correction and fusion with emission images. CT image s were performed without oral or intravenous contrast and are not sensitive for parenchymal lesions. A series of overlapping emission PET images were obtained. Images reviewed and manipulated at [facility] work station by the radiologist. Images stored on PACS. LIMITATIONS: None. FINDINGS: HEAD AND NECK: No areas of abnormal metabolic activity in the soft tissues of the head and neck. Cervical fusion hardware. CHEST: There is avid uptake within the previously biopsied right upper lobe 3.3 cm mass abutting the major fissure (series 3, image 68) (max SUV 15). 7 mm precarinal node without significant increased uptake (max SUV 1.8). No other areas of pathologic uptake within the thorax. No acute intrathoracic process. Upper lobe predominant emphysema. Normal heart size. ABDOMEN AND PELVIS: No areas of abnormal metabolic activity in the abdomen or pelvis. Expected physi ologic activity is present in the genitourinary system and bowel. PROXIMAL LOWER EXTREMITIES: No areas of abnormal metabolic activity in the soft tissues of the lower extremities. BONES: No abnormal metabolic activity in the visualized skeleton. Lumbar fusion hardware. Cervical fusion hardware. Bone anchor within the right proximal humerus. ADDITIONAL CT FINDINGS: As above. OTHER: Background hepatic activity max SUV 2.2. IMPRESSION: 1. Avid uptake within the previously biopsied right upper lobe mass (max SUV 15.0) comp atible with malignancy. 2. No other areas of pathologic uptake suggestive of local or distant metastatic disease TECHNICAL DOCUMENTATION: JOB ID: [id number] 2010 [email or web address]- All Rights Reserved Reading location - IP/workstation name: [email or web address]
== END ==
LOC: RAD 13:21
PROVIDERS: ATTEND Internal Medicine Hematology & Oncology
DX: C34.11 Malignant neoplasm of upper lobe, right bronchus or lung (principal)
CPT/HCPCS: 78815; A9552

== ENCOUNTER 2019-10-01 13:30 | Emergency (ER) | payer MEDICARE ==
--- NOTE | 2019-10-01 14:38 | ER Document Report ---
ED Medical Screen (RME) - General Chief Complaint: Shortness Of Breath Stated Complaint: SHORTNESS OF BREATH Time Seen by Provider: 10/01/19 14:33 Primary Care Provider: VIKY SWANSON MD [Primary Care Provider] - Follow up as needed Notes: Patient is a 63-year-old female who presents emergency department with a chief complaint of shortness of breath. Patient was recently diagnosed with lung cancer and breast cancer. Patient also has a history of COPD and is currently on 4 L nasal cannula. Exam: Diminished breath sounds noted throughout. I have greeted and performed a rapid initial assessment of this patient. A comprehensive ED assessment and evaluation of the patient, analysis of test results and completion of medical decision making process will be conducted by an additional ED providers. TRAVEL OUTSIDE OF THE [place] IN LAST 30 DAYS: No - Related Data Allergies/Adverse Reactions: aspirin Allergy (Verified 10/01/19 14:33) levofloxacin [From Levaquin] Allergy (Verified 10/01/19 14:33) NSAIDS (Non-Steroidal Anti-Inflamma Allergy (Verified 10/01/19 14:33) Past Medical History - Past Medical History Cardiac Medical History: Reports: Hx Hypercholesterolemia, Hx Hypertension Pulmonary Medical History: Reports: Hx Asthma, Hx COPD Renal/ Medical History: Denies: Hx Peritoneal Dialysis Malignancy Medical History: Reports: Hx Breast Cancer - s/p mastectomies (L) 2003 and (R) 2007. Psychiatric Medical History: Denies: Hx Depression Past Surgical History: Reports: Hx Hysterectomy, Hx Mastectomy - 2007 Physical Exam - Vital signs Vitals: Temp Pulse Resp BP Pulse Ox 98.3 F 107 H 21 H 115/74 100 10/01/19 14:11 10/01/19 14:11 10/01/19 14:11 10/01/19 14:11 10/01/19 14:11 Course - Vital Signs Vital signs: Temp Pulse Resp BP Pulse Ox 98.3 F 107 H 21 H 115/74 100 10/01/19 14:11 10/01/19 14:11 10/01/19 14:11 10/01/19 14:11 10/01/19 14:11 Doctor's Discharge - Discharge Referrals: VIKY SWANSON MD [Primary Care Provider] - Follow up as needed
--- NOTE | 2019-10-01 15:15 | RADIOLOGY REPORT (SQ) ---
EXAM DESCRIPTION: CHEST SINGLE VIEW IMAGES COMPLETED DATE/TIME: 10/01/2019 3:00 pm REASON FOR STUDY: shortness of breath COMPARISON: 08/20/2019 EXAM PARAMETERS: NUMBER OF VIEWS: One view. TECHNIQUE: Single frontal radiographic view of the chest acquired. RADIATION DOSE: NA LIMITATIONS: None. FINDINGS: LUNGS AND PLEURA: Right upper lobe mass. Hyperexpansion. Small effusions versus pleural thickening. No pneumothorax. MEDIASTINUM AND HILAR STRUCTURES: No masses. Contour normal. HEART AND VASCULAR STRUCTURES: Heart normal in size. Normal vasculature. BONES: No acute findings. HARDWARE: None in the chest. OTHER: No other significant finding. IMPRESSION: COPD with right upper lobe mass again noted. Blunting of the costophrenic angles consis tent with small effusions versus pleural thickening. TECHNICAL DOCUMENTATION: JOB ID: [id number] 2010 [employer]- All Rights Reserved Reading location - IP/workstation name: [email or web address]
--- NOTE | 2019-10-01 15:17 | RADIOLOGY REPORT (SQ) ---
EXAM DESCRIPTION: KNEE BILATERAL 1-2 VIEWS IMAGES COMPLETED DATE/TIME: 10/01/2019 3:00 pm REASON FOR STUDY: bilateral knee pain COMPARISON: None. NUMBER OF VIEWS: Two views. TECHNIQUE: AP and lateral radiographic images acquired of the right and left knee. LIMITATIONS: None. FINDINGS: MINERALIZATION: Osteopenia. BONES: No acute fracture or dislocation. No worrisome bone lesions. No significant osteophytes. JOINT: Joint space narrowing in all compartments. No joint effusions. OTHER: No other significant finding. IMPRESSION: Osteopenia. Bilateral tricompartmental osteoarthritis. No joint effusions. TECHNICAL DOCUMENTATION: JOB ID: [id number] 2010 [employer]- All Rights Reserved Reading location - IP/workstation name: [email or web address]
[2019-10-01 15:27] LABS: ABSOLUTE BASOPHILS # (AUTO) 0.1 10^3/uL (0.0-0.2); ABSOLUTE LYMPHOCYTES (AUTO) 1.5 10^3/uL (0.5-4.7); ABSOLUTE MONOCYTES (AUTO) 1.2 10^3/uL (0.1-1.4); ABSOLUTE NEUT (AUTO) 7.4 10^3/uL (1.7-8.2); BASOPHILS % (AUTO) 0.8 % (0-2); EOSINOPHILS % (AUTO) 0.4 % (0-6); HEMATOCRIT 32.8 % (36.0-47.0); HEMOGLOBIN 10.8 g/dL (12.0-15.5); LYMPHOCYTES % (AUTO) 14.6 % (13-45); MEAN CORPUSCULAR HEMOGLOBIN 27.1 pg (27.0-33.4); MEAN CORPUSCULAR HGB CONC 32.8 g/dL (32.0-36.0); MEAN CORPUSCULAR VOLUME 83 fl (80-97); MONOCYTES % (AUTO) 11.7 % (3-13); PLATELET COUNT 468 10^3/uL (150-450); RED BLOOD COUNT 3.97 10^6/uL (3.72-5.28); SEGMENTED NEUTROPHILS % (AUTO) 72.5 % (42-78); TOTAL CELLS COUNTED % (AUTO) 100 %; WHITE BLOOD COUNT 10.2 10^3/uL (4.0-10.5)
[2019-10-01 15:39] LABS: ALBUMIN 3.7 g/dL (3.5-5.0); ALKALINE PHOSPHATASE 104 U/L (38-126); ANION GAP 5 (5-19); ASPARTATE AMINO TRANSFERASE 22 U/L (14-36); BILIRUBIN,DIRECT 0.1 mg/dL (0.0-0.4); BILIRUBIN,TOTAL 0.5 mg/dL (0.2-1.3); BLOOD UREA NITROGEN 11 mg/dL (7-20); CALCIUM 9.1 mg/dL (8.4-10.2); CARBON DIOXIDE 30 mmol/L (22-30); CHLORIDE 104 mmol/L (98-107); GLUCOSE 97 mg/dL (75-110); TOTAL PROTEIN 7.3 g/dL (6.3-8.2)
[2019-10-01 15:51] LABS: NT PRO BNP 132 pg/mL (<125)
[2019-10-01 15:55] LABS: TROPONIN I < 0.012 ng/mL
--- NOTE | 2019-10-01 15:59 | ER Document Report ---
ED Respiratory Problem - General Chief Complaint: Shortness Of Breath Stated Complaint: SHORTNESS OF BREATH Time Seen by Provider: 10/01/19 14:33 Primary Care Provider: VIKY SWANSON MD [ACTIVE STAFF] - Follow up as needed LIGIA ARCE MD [ACTIVE STAFF] - Follow up as needed Mode of Arrival: Wheelchair Information source: Patient Notes: 63-year-old female presented to ED for complaint of shortness of breath and pain to her both knees mainly the right. She states she does have a history of lung cancer was diagnosed on August 152019 has a long history of COPD has been on 4 L nasal cannula at home. She was picked up by EMS and brought to the emergency room on her 4 L. Her O2 sat was 100% when I walked in to the room. She states she is scheduled to go to radiation therapy tomorrow for her lung cancer she is got an appointment with the heart doctor and a lung doctor concerning her new diagnosis of lung cancer. She states she also has a history of cholesterol and breast cancer. She has had a bilateral mastectomy and a hysterectomy. Patient is alert oriented able to answer all questions appropriately. I was examining the patient her O2 sat was 100% and I turned her oxygen down to 3 L. She did demonstrate less shortness of breath and stated her breathing was a little easier. Her O2 sat stayed at 100% so I turned it to 2 L nasal cannula. We continued to have a conversation and she stated she actually was starting to feel better. Her respirations went from 26 and 28 down to 19 and 20. TRAVEL OUTSIDE OF THE [place] IN LAST 30 DAYS: No - HPI Patient complains to provider of: COPD, Short of breath, Other - Right lung cancer Onset: Other Duration: Intermittent episodes - Intermittent Initiating Event: Other - COPD and right lung cancer Quality of pain: Sharp - Both knees Severity: Severe Pain Level: 5 Context: Hx COPD, Malignancy Short of Breath: Moderate Cough: Nonproductive Sputum amount: None Associated symptoms: Cough, Short of breath, Other - Bilateral knee pain. denies: Chest pain/discomfort Similar symptoms previously: Yes Recently seen / treated by doctor: Yes - Related Data Allergies/Adverse Reactions: aspirin Allergy (Verified 10/01/19 14:33) levofloxacin [From Levaquin] Allergy (Verified 10/01/19 14:33) NSAIDS (Non-Steroidal Anti-Inflamma Allergy (Verified 10/01/19 14:33) Home Medications: lung ca - right. high cholesterol Past Medical History - General Information source: Patient - Social History Smoking Status: Former Smoker Chew tobacco use (# tins/day): No Frequency of alcohol use: None Drug Abuse: None Lives with: Family Family History: Reviewed & Not Pertinent Patient has homicidal ideation: No - Past Medical History Cardiac Medical History: Reports: Hx Hypercholesterolemia, Hx Hypertension Pulmonary Medical History: Reports: Hx COPD EENT Medical History: Reports: None Neurological Medical History: Reports: None Endocrine Medical History: Reports: None Renal/ Medical History: Reports: None Malignancy Medical History: Reports: Hx Breast Cancer - s/p mastectomies (L) 2003 and (R) 2007., Hx Lung Cancer - right GI Medical History: Reports: None Musculoskeletal Medical History: Reports None Skin Medical History: Reports None Psychiatric Medical History: Reports: None Traumatic Medical History: Reports: None Infectious Medical History: Reports: None Past Surgical History: Reports: Hx Hysterectomy, Hx Mastectomy - 2007 - Immunizations Immunizations up to date: Yes Hx Diphtheria, Pertussis, Tetanus Vaccination: Yes Review of Systems - Review of Systems Constitutional: No symptoms reported EENT: No symptoms reported Cardiovascular: No symptoms reported Respiratory: No symptoms reported Gastrointestinal: No symptoms reported Genitourinary: No symptoms reported Female Genitourinary: No symptoms reported Musculoskeletal: Joint pain - Knee pain x-ray shows tricompartmental arthritis Skin: No symptoms reported Hematologic/Lymphatic: No symptoms reported Neurological/Psychological: No symptoms reported -: Yes All other systems reviewed and negative Physical Exam - Vital signs Vitals: Temp Pulse Resp BP Pulse Ox 98.3 F 107 H 21 H 115/74 100 10/01/19 14:11 10/01/19 14:11 10/01/19 14:11 10/01/19 14:11 10/01/19 14:11 Interpretation: Normal - General General appearance: Appears well, Alert - HEENT Head: Normocephalic, Atraumatic Eyes: Normal Pupils: PERRL - Respiratory Respiratory status: No respiratory distress Chest status: Nontender Breath sounds: Nonproductive cough. No: Rales, Rhonchi, Stridor, Wheezing Chest palpation: Normal - Cardiovascular Rhythm: Regular Heart sounds: Normal auscultation Murmur: No - Abdominal Inspection: Normal Distension: No distension Bowel sounds: Normal Tenderness: Nontender Organomegaly: No organomegaly - Back Back: Normal, Nontender - Extremities General upper extremity: Normal inspection, Nontender, Normal color, Normal ROM, Normal temperature General lower extremity: Normal inspection, Nontender, Normal color, Normal ROM, Normal temperature, Normal weight bearing. No: Sylvia's sign - Neurological Neuro grossly intact: Yes Cognition: Normal Orientation: AAOx4 Lucie Coma Scale Eye Opening: Spontaneous Lucie Coma Scale Verbal: Oriented [place] Coma Scale Motor: Obeys Commands [place] Coma Scale Total: 15 Speech: Normal Motor strength normal: LUE, RUE, LLE, RLE Sensory: Normal - Psychological Associated symptoms: Normal affect, Normal mood - Skin Skin Temperature: Warm Skin Moisture: Dry Skin Color: Normal Course - Re-evaluation Re-evalutation: 10/02/19 01:57 I discussed this patient with Dr. Arce relayed her x-ray results, lab results, vital signs and O2 sat. She is an oncology patient who is to get radiation treatment in the morning. Her shortness of breath is due to her COPD and lung cancer. He stated that she should follow-up with her oncologist to get her radiation treatment keep all of her appointments that have been scheduled and follow-up with him this week. Patient verbalized understanding and agreement with this patient before she was discharged home. Her symptoms did come and get her to take her home. - Vital Signs Vital signs: Temp Pulse Resp BP Pulse Ox 98.3 F 107 H 17 129/95 H 100 10/01/19 14:33 10/01/19 14:11 10/01/19 17:00 10/01/19 17:00 10/01/19 17:00 - Laboratory Result Diagrams: 10/01/19 15:08 10/01/19 15:08 Laboratory results interpreted by me: 10/01/19 10/01/19 15:08 15:08 Hgb 10.8 L Hct 32.8 L RDW 18.0 H Plt Count 468 H NT-Pro-B Natriuret Pep 132 H - Diagnostic Test Radiology reviewed: Image reviewed, Reports reviewed - EKG Interpretation by In EKG shows normal: Sinus rhythm, [place], Intervals, QRS Complexes Rate: Tachycardia Rhythm: NSR Additional EKG results interpreted by me: 10/01/19 16:52 Elevated T wave in the anterior leads new compared to EKG on 08/16/2019 Discharge - Discharge Clinical Impression: Short of breath on exertion Condition: Stable Disposition: HOME, SELF-CARE Additional Instructions: You were seen today for shortness of breath. Your chest x-ray is unchanged. You have the new onset diagnosis of right lung cancer and you need to go get your radiation treatment tomorrow. Spoken with Dr. Arce. 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 Stated you should follow-up with his office later this week. He stated you should decrease your oxygen at home to 2 L nasal cannula and to monitor your pulse ox if you get short of breath. Return to the ED for any increasing shortness of breath or discomfort. You will need to follow-up with an biodiesel engine specialist for your knee pain. The x-ray showed tricompartmental arthritis to the knee. Continue medications as prescribed. FOLLOW-UP CARE: If you have been referred to a physician for follow-up care, call the physicians office for an appointment as you were instructed or within the next two days. If you experience worsening or a significant change in your symptoms, notify the physician immediately or return to the Emergency Department at any time for re-evaluation. Forms: Elevated Blood Pressure Referrals: VIKY SWANSON MD [ACTIVE STAFF] - Follow up as needed LIGIA ARCE MD [ACTIVE STAFF] - Follow up as needed
[2019-10-01 18:16] VITALS: BP 129/95
--- NOTE | 2019-10-01 19:47 | EKG REPORT ---
SEVERITY:- OTHERWISE NORMAL ECG - SINUS TACHYCARDIA : Confirmed by: Veronica Combs MD 01-Oct-2019 19:46:48
== END 2019-10-01 17:40 | disposition home or self-care (01) ==
LOC: ER 13:30
DX: J44.9 Chronic obstructive pulmonary disease, unspecified (principal); C34.91 Malignant neoplasm of unspecified part of right bronchus or lung; Z99.81 Dependence on supplemental oxygen; M17.0 Bilateral primary osteoarthritis of knee; M85.80 Other specified disorders of bone density and structure, unspecified site; R06.02 Shortness of breath; R05 Cough; R00.0 Tachycardia, unspecified; I10 Essential (primary) hypertension; E78.00 Pure hypercholesterolemia, unspecified; Z79.899 Other long term (current) drug therapy; Z87.891 Personal history of nicotine dependence; Z85.3 Personal history of malignant neoplasm of breast; Z88.8 Allergy status to other drugs, medicaments and biological substances; Z88.1 Allergy status to other antibiotic agents
CPT/HCPCS: 36415; 71045; 80053; 83880; 84484; 85025; 93005; 93010; 99285

== ENCOUNTER 2019-12-28 11:53 | Outpatient (CLI) | payer MEDICARE ==
[~2019-12-28 11:53] MED LIST: FERUMOXYTOL (NON-ESRD) 510 MG/NS 100 ML IV PRN; NORMAL SALINE 250 ML IV PRN
[2019-12-28 12:14] VITALS: BP 132/79
== END 2019-12-28 13:16 | disposition home or self-care (01) ==
LOC: II 11:53 → 5TH 11:54 → II 13:16
PROVIDERS: ATTEND Internal Medicine Hematology & Oncology
DX: D50.9 Iron deficiency anemia, unspecified (principal); K90.9 Intestinal malabsorption, unspecified
CPT/HCPCS: 96365; Q0138; J7050

== ENCOUNTER 2020-01-04 12:55 | Outpatient (CLI) | payer MEDICARE ==
[~2020-01-04 12:55] MED LIST changes: -FERUMOXYTOL (NON-ESRD) 510 MG/NS 100 ML IV PRN; +FERUMOXYTOL 510 MG in NORMAL SALINE 100 ML IV PRN
[2020-01-04 13:35] VITALS: BP 121/83
== END 2020-01-04 13:58 | disposition home or self-care (01) ==
LOC: II 12:55 → 5TH 13:38 → II 13:58
PROVIDERS: ATTEND Internal Medicine Hematology & Oncology
DX: D50.9 Iron deficiency anemia, unspecified (principal); K90.9 Intestinal malabsorption, unspecified
CPT/HCPCS: 96365; Q0138; J7050

== ENCOUNTER → 2020-02-14 | Outpatient (CLI) | payer MEDICARE ==
--- NOTE | 2020-02-14 11:39 | RADIOLOGY REPORT (SQ) ---
EXAM DESCRIPTION: CT CHEST WITH IMAGES COMPLETED DATE/TIME: 02/14/2020 9:14 am REASON FOR STUDY: C34.11 MALIGNANT NEOPLASM OF UPPER LOBE, RIGHT BRONCHUS OR LUNG C34.11 MALIGNANT NEOPLASM OF UPPER LOBE, RIGHT BRONCHUS OR L COMPARISON: 08/16/2019 TECHNIQUE: CT scan of the chest performed using helical scanning technique with dynamic intravenous contrast injection. Images reviewed with lung, soft tissue and bone windows. Reconstructed coronal and sagittal MPR and MIP images reviewed. All images stored on PACS. All CT scanners at this facility use dose modulation, iterative reconstruction, and/or weight based d osing when appropriate to reduce radiation dose to as low as reasonably achievable (ALARA). [facility]: Dose Right [facility]: CareDose [facility]: Dose Right [facility]: Teradose 4D [facility]: Safaricross CONTRAST TYPE AND DOSE: contrast/concentration: Isovue 350.00 mmol/ml; Total Contrast Delivered: 80. 0 ml; Total Saline Delivered: 38.0 ml RENAL FUNCTION: Creatinine 0.5 RADIATION DOSE: CT Rad equipment meets quality standard of care and radiation dose reduction techniq ues were employed. CTDIvol: 3.3 mGy. DLP: 131 mGy-cm. . LIMITATIONS: None. FINDINGS: LUNGS AND PLEURA: Stable bilateral emphysematous change. Previously described mass along the major fissure has increased in size. The lesion now measures 3.0 x 3.9 x 3.9 cm. It has extende d across the major fissure. It demonstrates heterogeneous attenuation with probable central necrosis . Possible chest wall invasion best demonstrated on sagittal images 18 through 23 HILAR AND MEDIASTINAL STRUCTURES: No identified masses or abnormal nodes. HEART AND VASCULAR STRUCTURES: No aneurysm or dissection. No central pulmonary emboli. No pericardi al effusion. HARDWARE: None in the chest. UPPER ABDOMEN: No significant findings. Limited exam. THYROID AND OTHER SOFT TISSUES: No masses. No adenopathy. BONES: No significant finding. OTHER: No other significant finding. IMPRESSION: Right upper lobe mass is increased in size. It cross the major fissure in now appears t o involve the chest wall. The mass now measures 3.0 x 3.9 x 3.9 cm. TECHNICAL DOCUMENTATION: JOB ID: [id number] Quality ID # [id number]: Final reports with documentation of one or more dose reduction techniques (e.g., Au tomated exposure control, adjustment of the mA and/or kV according to patient size, use of iterative reconstruction technique) 2010 [employer]- All Rights Reserved Reading location - IP/workstation name: [email or web address]
== END ==
LOC: RAD 08:42
PROVIDERS: ATTEND Internal Medicine Hematology & Oncology
DX: C34.11 Malignant neoplasm of upper lobe, right bronchus or lung (principal); J43.9 Emphysema, unspecified
CPT/HCPCS: 71260; 82565